=== PATIENT | female | born 1930 | race Caucasian/White ===

== ENCOUNTER → 2017-03-03 | Outpatient (CLI) | payer MEDICARE, BC ==
--- NOTE | 2017-03-03 13:43 | XR ---
EXAMINATION TYPE: XR ankle complete LT DATE OF EXAM: 03/03/2017 1:38 PM COMPARISON: NONE HISTORY: Pain FINDINGS: Three views of the ankle demonstrate the ankle mortise to be intact and symmetric. The joint spaces are preserved. The osseous structures are intact. Soft tissue edema with soft tissue calcifications . Located corticated density adjacent to the medial malleolus compatible with remote trauma. Calcanea l spurs seen. Metallic densities overlying the posterior tibia may be artifact rather than foreign hanane dy correlate clinically. IMPRESSION: 1. Chronic evidence of trauma with diffuse soft tissue edema correlate for cellulitis.
== END ==
LOC: RADXRMAIN 13:13
PROVIDERS: ATTEND Family Medicine
DX: R60.0 Localized edema (principal)

== ENCOUNTER → 2017-03-03 | Outpatient (CLI) | payer MEDICARE, BC ==
[~2017-03-03] MED LIST: COSYNTROPIN 0.25 MG VIAL IVP NR; SODIUM CHLORIDE 0.9% 250 ML in EMPTY BAG 1 BAG IV PRN; SODIUM CHLORIDE 0.9% 500 ML in EMPTY BAG 1 BAG IV PRN
[2017-03-03 13:56] VITALS: BP 139/80; PULSE 90; RESP 16; TEMP 97.9
== END ==
LOC: PROCWHC3 13:39
PROVIDERS: ATTEND Internal Medicine Critical Care Medicine
DX: J84.112 Idiopathic pulmonary fibrosis (principal)
CPT/HCPCS: 82533; 82024; 73610; 96374; 36415; J0834

== ENCOUNTER 2017-10-14 20:40 | Emergency (ER) | payer MEDICARE, BC ==
[2017-10-14 21:05] VITALS: RESP 18
[2017-10-14] MEDS ORDERED: valACYclovir HCL 1,000 MG TABLET PO STA (21:31)
--- NOTE | 2017-10-14 21:37 | ED ---
Abdominal Pain HPI - General Chief Complaint: Abdominal Pain Stated Complaint: left side and Abd Pain Time Seen by Provider: 10/14/17 21:14 Source: patient, family, RN notes reviewed Mode of arrival: wheelchair Limitations: no limitations - History of Present Illness Initial Comments: This is an 86-year-old female presents emergency Department with chief complaint of left-sided abdominal pain. Patient states the pain started on Wednesday and has progressively gotten worse. She did have a bowel movement this morning which did not really help her symptoms. She denies any diarrhea or constipation today. She does state that she does not have a regular bowel movement so. She states that she feels very gassy and has been passing gas. Patient states that she's had a prior hysterectomy, cholecystectomy. Denies fever, chills. She does admit to having a prior history of diverticulitis. Patient denies dysuria, hematuria, chest pain or shortness breath. She states she normally has some shortness of breath though. - Related Data Home Medications Medication Instructions Recorded Confirmed Furosemide [Lasix] 20 mg PO DAILY 09/23/17 10/14/17 Hydrocortisone Cream 1 applic TOPICAL HS 09/23/17 10/14/17 [Hydrocortisone 2.5% Cream] Ibuprofen 600 mg PO TID PRN 09/23/17 10/14/17 Meclizine HCl 25 mg PO TID 09/23/17 10/14/17 aMILoride-HCTZ 5-50 mg [Moduretic 1 tab PO DAILY 09/23/17 10/14/17 5-50] predniSONE 10 mg PO DAILY 09/23/17 10/14/17 Previous Rx's Medication Instructions Recorded Apixaban [Eliquis] 2.5 mg PO BID #60 tablet 09/25/17 Metoprolol Tartrate [Lopressor] 25 mg PO BID #60 tab 09/25/17 Nitroglycerin Sl Tabs [Nitrostat] 0.4 mg SUBLINGUAL Q5M PRN #20 tab 09/25/17 valACYclovir HCL [Valtrex] 1,000 mg PO Q8HR #30 tab 10/14/17 Allergies Allergy/AdvReac Type Severity Reaction Status Date / Time aspirin Allergy Rash/Hives Verified 10/14/17 21:14 codeine Allergy Itching Verified 10/14/17 21:14 Iodinated Contrast- Oral and AdvReac Dyspnea Verified 10/14/17 21:14 IV Dye Review of Systems ROS Statement: Those systems with pertinent positive or pertinent negative responses have been documented in the HPI. ROS Other: All systems not noted in ROS Statement are negative. Past Medical History Past Medical History: Atrial Fibrillation, Cancer, GERD/Reflux, Hypertension, Osteoarthritis (OA), Pneumonia Additional Past Medical History / Comment(s): pulmoary fibrosis ,home 02 2 liters n/c, BACK PAIN,VARICOSE VEINS, DIVERTICULITS, SKIN CANCER(FOREHAED AND TOP OF HEAD), CATARACTS(SX ON LT EYE IN 2004,RT EYE 09-23-17), History of Any Multi-Drug Resistant Organisms: None Reported Past Surgical History: Back Surgery, Cholecystectomy, Hysterectomy, Orthopedic Surgery Additional Past Surgical History / Comment(s): bilateral knee replacements, garrick cataracts, vein stripping,colonoscopy, egd, total hysterectomy, garrick shoulder sx- bone spurs removed Past Anesthesia/Blood Transfusion Reactions: Motion Sickness Past Psychological History: Anxiety Smoking Status: Never smoker Past Alcohol Use History: None Reported Past Drug Use History: None Reported - Past Family History Mother Family Medical History: CVA/TIA Father History Unknown: Yes Additional Family Medical History / Comment(s): pt was raised by step father Sister(s) Family Medical History: Cancer Additional Family Medical History / Comment(s): breast cancer General Exam Limitations: no limitations General appearance: alert, in no apparent distress Head exam: Present: atraumatic, normocephalic, normal inspection Respiratory exam: Present: normal lung sounds bilaterally. Absent: respiratory distress, wheezes, rales, rhonchi, stridor Cardiovascular Exam: Present: regular rate, normal rhythm, normal heart sounds. Absent: systolic murmur, diastolic murmur, rubs, gallop, clicks GI/Abdominal exam: Present: soft, tenderness (Moderate left-sided abdominal tenderness), normal bowel sounds. Absent: distended, guarding, rebound, rigid Skin exam: Present: rash (Vesicular erythematous rash over the left buttock ) Course Vital Signs 10/14/17 10/14/17 21:02 22:20 Temperature 98.2 F Pulse Rate 100 78 Respiratory 18 18 Rate Blood Pressure 145/67 148/65 O2 Sat by Pulse 90 L 99 Oximetry Medical Decision Making - Medical Decision Making 86-year-old female presents emergency Department chief complaint of left-sided abdominal discomfort. Patient CT does not show any evidence of acute infection. Patient's pain may be related to her shingles. Patient does have complaints of increased gas and which they've been given her MiraLAX. Patient' s symptoms may be related to this. Patient is advised to take softener rather than a laxative and patient prescribed Valtrex for her shingles - Lab Data Result diagrams: 10/14/17 21:45 10/14/17 21:45 Lab Results 10/14/17 10/14/17 10/14/17 Range/Units 21:40 21:45 21:45 WBC 8.0 (3.8-10.6) k/uL RBC 3.77 L (3.80-5.40) m/uL Hgb 11.4 (11.4-16.0) gm/dL Hct 36.1 (34.0-46.0) % MCV 95.6 (80.0-100.0) fL MCH 30.3 (25.0-35.0) pg MCHC 31.6 (31.0-37.0) g/dL RDW 14.6 (11.5-15.5) % Plt Count 168 (150-450) k/uL Neutrophils % 71 % Lymphocytes % 16 % Monocytes % 8 % Eosinophils % 3 % Basophils % 0 % Neutrophils # 5.7 (1.3-7.7) k/uL Lymphocytes # 1.3 (1.0-4.8) k/uL Monocytes # 0.6 (0-1.0) k/uL Eosinophils # 0.2 (0-0.7) k/uL Basophils # 0.0 (0-0.2) k/uL Sodium 136 L (137-145) mmol/L Potassium 4.2 (3.5-5.1) mmol/L Chloride 94 L (98-107) mmol/L Carbon Dioxide 35 H (22-30) mmol/L Anion Gap 7 mmol/L BUN 25 H (7-17) mg/dL Creatinine 0.90 (0.52-1.04) mg/dL Est GFR (MDRD) Af Amer >60 (>60 ml/min/1.73 sqM) Est GFR (MDRD) Non-Af 60 (>60 ml/min/1.73 sqM) Glucose 128 H (74-99) mg/dL Plasma Lactic Acid Adebayo (0.7-2.0) mmol/L Calcium 9.1 (8.4-10.2) mg/dL Total Bilirubin 1.0 (0.2-1.3) mg/dL AST 32 (14-36) U/L ALT 41 (9-52) U/L Alkaline Phosphatase 71 (38-126) U/L Total Protein 6.9 (6.3-8.2) g/dL Albumin 3.3 L (3.5-5.0) g/dL Amylase 63 (30-110) U/L Lipase 133 (23-300) U/L Urine Color Yellow Urine Appearance Clear (Clear) Urine pH 7.0 (5.0-8.0) Ur Specific [place] 1.015 (1.001-1.035) Urine Protein Negative (Negative) Urine Glucose (UA) Negative (Negative) Urine Ketones Negative (Negative) Urine Blood Negative (Negative) Urine Nitrite Negative (Negative) Urine Bilirubin Negative (Negative) Urine Urobilinogen 12.0 (<2.0) mg/dL Ur Leukocyte Esterase Negative (Negative) 10/14/17 Range/Units 21:45 WBC (3.8-10.6) k/uL RBC (3.80-5.40) m/uL Hgb (11.4-16.0) gm/dL Hct (34.0-46.0) % MCV (80.0-100.0) fL MCH (25.0-35.0) pg MCHC (31.0-37.0) g/dL RDW (11.5-15.5) % Plt Count (150-450) k/uL Neutrophils % % Lymphocytes % % Monocytes % % Eosinophils % % Basophils % % Neutrophils # (1.3-7.7) k/uL Lymphocytes # (1.0-4.8) k/uL Monocytes # (0-1.0) k/uL Eosinophils # (0-0.7) k/uL Basophils # (0-0.2) k/uL Sodium (137-145) mmol/L Potassium (3.5-5.1) mmol/L Chloride (98-107) mmol/L Carbon Dioxide (22-30) mmol/L Anion Gap mmol/L BUN (7-17) mg/dL Creatinine (0.52-1.04) mg/dL Est GFR (MDRD) Af Amer (>60 ml/min/1.73 sqM) Est GFR (MDRD) Non-Af (>60 ml/min/1.73 sqM) Glucose (74-99) mg/dL Plasma Lactic Acid Adebayo 1.8 (0.7-2.0) mmol/L Calcium (8.4-10.2) mg/dL Total Bilirubin (0.2-1.3) mg/dL AST (14-36) U/L ALT (9-52) U/L Alkaline Phosphatase (38-126) U/L Total Protein (6.3-8.2) g/dL Albumin (3.5-5.0) g/dL Amylase (30-110) U/L Lipase (23-300) U/L Urine Color Urine Appearance (Clear) Urine pH (5.0-8.0) Ur Specific [place] (1.001-1.035) Urine Protein (Negative) Urine Glucose (UA) (Negative) Urine Ketones (Negative) Urine Blood (Negative) Urine Nitrite (Negative) Urine Bilirubin (Negative) Urine Urobilinogen (<2.0) mg/dL Ur Leukocyte Esterase (Negative) Disposition Clinical Impression: Abdominal pain, Shingles, Abdominal gas pain Disposition: HOME SELF-CARE Condition: Stable Instructions: Abdominal Pain (ED), Shingles (ED) Additional Instructions: Please return to the Emergency Department if symptoms worsen or any other concerns. Prescriptions: valACYclovir HCL [Valtrex] 1,000 mg PO Q8HR #30 tab Referrals: Angel Boss DO [Primary Care Provider] - 1-2 days Time of Disposition: 22:30
[2017-10-14 21:51] LABS: Appearance,Urine Clear (Clear); Bilirubin,Urine Negative (Negative); Blood,Urine Negative (Negative); Color,Urine Yellow; Glucose,Urine (UA) Negative (Negative); Ketones,Urine Negative (Negative); Leukocyte Esterase,Urine Negative (Negative); Nitrite,Urine Negative (Negative); Protein,Urine Negative (Negative); Specific Gravity,Urine 1.015 (1.001-1.035)
[2017-10-14 22:04] LABS: Basophils % (A) 0 %; Eosinophils # (A) 0.2 k/uL (0-0.7); Eosinophils % (A) 3 %; HCT 36.1 % (34.0-46.0); HGB 11.4 gm/dL (11.4-16.0); Lymphocytes # (A) 1.3 k/uL (1.0-4.8); Lymphocytes % (A) 16 %; MCH 30.3 pg (25.0-35.0); MCHC 31.6 g/dL (31.0-37.0); MCV 95.6 fL (80.0-100.0); Mean Platelet Volume 7.4; Monocytes # (A) 0.6 k/uL (0-1.0); Monocytes % (A) 8 %; Neutrophils # (A) 5.7 k/uL (1.3-7.7); Neutrophils % (A) 71 %; Platelet Count 168 k/uL (150-450); RBC 3.77 m/uL (3.80-5.40); RDW 14.6 % (11.5-15.5)
[2017-10-14 22:12] LABS: ALT 41 U/L (9-52); AST 32 U/L (14-36); Albumin 3.3 g/dL (3.5-5.0); Alkaline Phosphatase 71 U/L (38-126); Amylase 63 U/L (30-110); Anion Gap 7 mmol/L; Blood Urea Nitrogen 25 mg/dL (7-17); Calcium 9.1 mg/dL (8.4-10.2); Carbon Dioxide 35 mmol/L (22-30); Chloride 94 mmol/L (98-107); Glucose 128 mg/dL (74-99); Lipase 133 U/L (23-300); Potassium 4.2 mmol/L (3.5-5.1); Sodium 136 mmol/L (137-145); Total Protein 6.9 g/dL (6.3-8.2)
[2017-10-14 22:22] VITALS: BP 148/65; PULSE 78
--- NOTE | 2017-10-14 22:27 | CT ---
EXAMINATION TYPE: CT abdomen pelvis wo con DATE OF EXAM: 10/14/2017 COMPARISON: NONE HISTORY: Left side abdominal pain. CT DLP: 2442.1 mGycm Automated exposure control for dose reduction was used. TECHNIQUE: Helical acquisition of images was performed from the lung bases through the pelvis. FINDINGS: There is coarse interstitial density in the mid and lower lung sheldon consistent with significant pul monary fibrosis. Heart is enlarged. There is vascular calcification. Liver shows no focal defect. Spleen appears normal. There is no pancreatic mass. Bile ducts are not d ilated. Gallbladder is absent. There is no adrenal mass. Kidneys have normal size and contour. There is no hydronephrosis. There is no retroperitoneal adenopathy. Abdominal aorta is atheromatous. There is no ascites. There are multip le sigmoid diverticula. I see no sign of diverticulitis. Appendix appears normal. There is a degenera tive first degree spondylolisthesis at L3-4 and L4-5. There is posterior fusion surgery. There is mul tilevel spondylosis in the lumbar spine. IMPRESSION: EXTENSIVE FIBROTIC CHANGES AT THE LUNG BASES. CARDIOMEGALY. ATHEROSCLEROTIC VASCULAR DISEASE. SPONDYL OTIC CHANGES IN THE LUMBAR SPINE. COLONIC DIVERTICULOSIS WITHOUT SIGN OF DIVERTICULITIS. NO SIGN OF A N ACUTE ABDOMEN. SMALL UMBILICAL HERNIA NOTED THAT CONTAINS OMENTAL FAT.
[2017-10-14 22:40] VITALS: TEMP 97.5
== END 2017-10-14 22:40 | disposition home or self-care (01) ==
LOC: EC 20:40
DX: B02.9 Zoster without complications (principal); R14.1 Gas pain; I10 Essential (primary) hypertension; Z85.828 Personal history of other malignant neoplasm of skin; Z90.49 Acquired absence of other specified parts of digestive tract; Z79.52 Long term (current) use of systemic steroids; Z79.899 Other long term (current) drug therapy; Z88.6 Allergy status to analgesic agent; Z88.5 Allergy status to narcotic agent; Z91.041 Radiographic dye allergy status
CPT/HCPCS: 36415; 74176; 80053; 81003; 82150; 83605; 83690; 85025; 99284

== ENCOUNTER 2017-11-11 10:11 | Inpatient (IN) | payer MEDICARE, BC ==
[2017-11-11] MEDS ORDERED: MORPHINE SULFATE 2 MG/ML SYRINGE IVP ONE (10:21)
[2017-11-11] MEDS ORDERED: SODIUM CHLORIDE 0.9% 1,000 ML IV ONE (10:21)
[2017-11-11] MEDS ORDERED: GABAPENTIN 300 MG CAP PO STA (10:21)
--- NOTE | 2017-11-11 10:41 | ED ---
General Adult HPI - General Chief complaint: Recheck/Abnormal Lab/Rx Stated complaint: Shingles Recheck Time Seen by Provider: 11/11/17 10:13 Source: patient, EMS Mode of arrival: EMS - History of Present Illness Initial comments: This is an 86-year-old female with a history of H of fibrillation, pulmonary fibrosis on chronic 2 L of O2 who presents emergency department for generalized weakness and buttock pain. The patient was diagnosed with shingles about 3 weeks ago. She has completed her course of therapy however has had persistent pain that is been severe. She states that she has had difficulty with ambulation. She's been sitting most of the day because she does not want to get up because of the pain. She states that her mouth feels very dry. She returned lives at home with her daughter who reportedly feels that she's been more and more weak because she has not been getting up. The patient normally can ambulate with a walker. Patient does not take any pain medications currently she is chronically on prednisone for her pulmonary fibrosis. She denies any chest pain or shortness of breath. No abdominal pain. No nausea vomiting or diarrhea. No dysuria or hematuria. No other acute complaints. - Related Data Home Medications Medication Instructions Recorded Confirmed Hydrocortisone Cream 1 applic TOPICAL HS PRN 09/23/17 11/11/17 [Hydrocortisone 2.5% Cream] aMILoride-HCTZ 5-50 mg [Moduretic 1 tab PO DAILY 09/23/17 11/11/17 5-50] predniSONE 10 mg PO DAILY 09/23/17 11/11/17 ALPRAZolam [Xanax] 0.5 mg PO Q8H PRN 11/11/17 11/11/17 Fluticasone Nasal [place] [Flonase 1 spray EA NOSTRIL DAILY 11/11/17 11/11/17 Nasal [place]] traMADol HCL [Ultram] 50 mg PO Q8H PRN 11/11/17 11/11/17 Previous Rx's Medication Instructions Recorded Apixaban [Eliquis] 2.5 mg PO BID #60 tablet 09/25/17 Metoprolol Tartrate [Lopressor] 25 mg PO BID #60 tab 09/25/17 Nitroglycerin Sl Tabs [Nitrostat] 0.4 mg SUBLINGUAL Q5M PRN #20 tab 09/25/17 Allergies Allergy/AdvReac Type Severity Reaction Status Date / Time aspirin Allergy Rash/Hives Verified 11/11/17 10:56 codeine Allergy Itching Verified 11/11/17 10:56 Iodinated Contrast- Oral and Allergy Anaphylaxis Verified 11/11/17 10:56 IV Dye Review of Systems ROS Statement: Those systems with pertinent positive or pertinent negative responses have been documented in the HPI. ROS Other: All systems not noted in ROS Statement are negative. Past Medical History Past Medical History: Atrial Fibrillation, Cancer, GERD/Reflux, Hypertension, Osteoarthritis (OA), Pneumonia Additional Past Medical History / Comment(s): pulmoary fibrosis ,home 02 2 liters n/c, BACK PAIN,VARICOSE VEINS, DIVERTICULITS, SKIN CANCER(FOREHAED AND TOP OF HEAD), CATARACTS(SX ON LT EYE IN 2004,RT EYE 09-23-17), Shingles 10/17/17 History of Any Multi-Drug Resistant Organisms: None Reported Past Surgical History: Back Surgery, Cholecystectomy, Hysterectomy, Orthopedic Surgery Additional Past Surgical History / Comment(s): bilateral knee replacements, garrick cataracts, vein stripping,colonoscopy, egd, total hysterectomy, garrick shoulder sx- bone spurs removed Past Anesthesia/Blood Transfusion Reactions: Motion Sickness Past Psychological History: Anxiety Smoking Status: Never smoker Past Alcohol Use History: None Reported Past Drug Use History: None Reported - Past Family History Mother Family Medical History: CVA/TIA Father History Unknown: Yes Additional Family Medical History / Comment(s): pt was raised by step father Sister(s) Family Medical History: Cancer Additional Family Medical History / Comment(s): breast cancer General Exam - General Exam Comments Initial Comments: Constitutional: Awake alert patient very uncomfortable with any slight movement Head: Normocephalic atraumatic Eyes: no conjunctival injection No scleral icterus EOMI ENT: Oropharynx is dry without erythema Neck: No JVD Supple Heart: Regular rate rhythm normal S1-S2 no murmurs Lungs: Clear to auscultation bilaterally No wheezing No rales Abdomen: Soft nondistended nontender Extremities: Non edematous DP pulses intact Radial pulses intact, there is a scaling dry rash to the left buttock extending to the left lateral thigh. No active lesions Neuro: A&Ox3 No focal neurologic deficits Psych: Appropriate mood and affect Course Vital Signs 11/11/17 11/11/17 10:24 12:58 Temperature 98.2 F 97.5 F L Pulse Rate 98 95 Respiratory 20 18 Rate Blood Pressure 157/72 160/95 O2 Sat by Pulse 97 100 Oximetry EKG Findings - EKG Comments: EKG Findings:: EKG showing it or fibrillation with a rate of 86. Normal was 27 changes or tumor in her QTC is 473. Other intervals are normal. No ectopy. Medical Decision Making - Medical Decision Making Is a 6-year-old female who presents emergency department for generalized weakness, mild shortness of breath, and pain. The patient was found have a left -sided pneumonia. She started on Levaquin. Due to her significant weakness and do not feel it safe for her to go home. She has not been eating or drinking. She appears clinically dehydrated. She was started on IV fluids and will be admitted. Dr. Boss accepts the admission. Patient and family were updated and agree. - Lab Data Result diagrams: 11/11/17 12:05 11/11/17 12:05 Lab Results 11/11/17 11/11/17 11/11/17 Range/Units 12:05 12:05 12:55 WBC 10.1 (3.8-10.6) k/uL RBC 4.20 (3.80-5.40) m/uL Hgb 13.0 (11.4-16.0) gm/dL Hct 41.9 (34.0-46.0) % MCV 99.9 (80.0-100.0) fL MCH 31.0 (25.0-35.0) pg MCHC 31.0 (31.0-37.0) g/dL RDW 16.8 H (11.5-15.5) % Plt Count 162 (150-450) k/uL Neutrophils % 55 % Lymphocytes % 28 % Monocytes % 11 % Eosinophils % 3 % Basophils % 1 % Neutrophils # 5.6 (1.3-7.7) k/uL Lymphocytes # 2.8 (1.0-4.8) k/uL Monocytes # 1.1 H (0-1.0) k/uL Eosinophils # 0.3 (0-0.7) k/uL Basophils # 0.1 (0-0.2) k/uL Anisocytosis Slight Macrocytosis Slight Sodium 133 L (137-145) mmol/L Potassium 4.6 (3.5-5.1) mmol/L Chloride 94 L (98-107) mmol/L Carbon Dioxide 30 (22-30) mmol/L Anion Gap 9 mmol/L BUN 24 H (7-17) mg/dL Creatinine 0.70 (0.52-1.04) mg/dL Est GFR (MDRD) Af Amer >60 (>60 ml/min/1.73 sqM) Est GFR (MDRD) Non-Af >60 (>60 ml/min/1.73 sqM) Glucose 86 (74-99) mg/dL Calcium 9.5 (8.4-10.2) mg/dL Magnesium 2.0 (1.6-2.3) mg/dL Total Bilirubin 2.9 H (0.2-1.3) mg/dL AST 36 (14-36) U/L ALT 17 (9-52) U/L Alkaline Phosphatase 84 (38-126) U/L Total Protein 7.6 (6.3-8.2) g/dL Albumin 3.7 (3.5-5.0) g/dL Urine Color Yellow Urine Appearance Clear (Clear) Urine pH 6.5 (5.0-8.0) Ur Specific [place] 1.012 (1.001-1.035) Urine Protein Negative (Negative) Urine Glucose (UA) Negative (Negative) Urine Ketones Negative (Negative) Urine Blood Negative (Negative) Urine Nitrite Negative (Negative) Urine Bilirubin Negative (Negative) Urine Urobilinogen <2.0 (<2.0) mg/dL Ur Leukocyte Esterase Negative (Negative) Disposition Clinical Impression: CAP (community acquired pneumonia), Ambulatory dysfunction Disposition: ADMITTED IP TO THIS HOSP Condition: Stable
--- NOTE | 2017-11-11 11:04 | XR ---
EXAMINATION TYPE: XR chest 1V portable DATE OF EXAM: 11/11/2017 COMPARISON: 09/23/2017 HISTORY: Shortness of breath and weakness TECHNIQUE: Single frontal view of the chest is obtained. FINDINGS: There is improved aeration of the lungs in comparison to the prior, however there is a new patchy opacity within the left midlung. Heart is enlarged. There is generalized osseous demineraliza tion. Diffuse interstitial prominence has decreased from the prior. Left-sided humeral arthroplasty a nd extensive degenerative changes of the right acromio clavicular joint with sequela of chronic rotat or cuff injury are noted. IMPRESSION: 1. New midlung persistent patchy opacity concerning for pneumonia. 2. Mild interstitial prominence appears decreased from the prior exam favored to relate to mild inter stitial cardiogenic pulmonary edema.
[2017-11-11] MEDS ORDERED: LEVOFLOXACIN 500MG-D5W PMX 500 MG in DEXTROSE/WATER 1 100ML.BAG IVPB STA (11:23)
[2017-11-11 12:26] LABS: ALT 17 U/L (9-52); AST 36 U/L (14-36); Albumin 3.7 g/dL (3.5-5.0); Alkaline Phosphatase 84 U/L (38-126); Anion Gap 9 mmol/L; Blood Urea Nitrogen 24 mg/dL (7-17); Calcium 9.5 mg/dL (8.4-10.2); Carbon Dioxide 30 mmol/L (22-30); Chloride 94 mmol/L (98-107); Glucose 86 mg/dL (74-99); Sodium 133 mmol/L (137-145); Total Bilirubin 2.9 mg/dL (0.2-1.3); Total Protein 7.6 g/dL (6.3-8.2)
[2017-11-11 12:28] LABS: Anisocytosis Slight; Basophils # (A) 0.1 k/uL (0-0.2); Basophils % (A) 1 %; Eosinophils # (A) 0.3 k/uL (0-0.7); Eosinophils % (A) 3 %; HCT 41.9 % (34.0-46.0); Lymphocytes # (A) 2.8 k/uL (1.0-4.8); Lymphocytes % (A) 28 %; MCV 99.9 fL (80.0-100.0); Macrocytosis Slight; Mean Platelet Volume 7.5; Monocytes # (A) 1.1 k/uL (0-1.0); Monocytes % (A) 11 %; Neutrophils # (A) 5.6 k/uL (1.3-7.7); Neutrophils % (A) 55 %; Platelet Count 162 k/uL (150-450); RDW 16.8 % (11.5-15.5); WBC 10.1 k/uL (3.8-10.6)
[2017-11-11 12:35] LABS: Potassium 4.6 mmol/L (3.5-5.1)
[2017-11-11 13:13] LABS: Appearance,Urine Clear (Clear); Bilirubin,Urine Negative (Negative); Blood,Urine Negative (Negative); Color,Urine Yellow; Glucose,Urine (UA) Negative (Negative); Ketones,Urine Negative (Negative); Leukocyte Esterase,Urine Negative (Negative); Nitrite,Urine Negative (Negative); PH, Urine 6.5 (5.0-8.0); Protein,Urine Negative (Negative); Specific Gravity,Urine 1.012 (1.001-1.035); Urobilinogen,Urine <2.0 mg/dL (<2.0)
[2017-11-11] MEDS ORDERED: PNEUMONIA PROTOCOL UTILIZED 1 EACH MISC PO PRN (13:30)
[2017-11-11] MEDS ORDERED: HYDROCORTISONE 1% CREAM 30 GM TUBE TOPICAL PRN (13:31)
[2017-11-11] MEDS ORDERED: ALPRAZolam 0.5 MG TAB PO PRN (13:31)
[2017-11-11] MEDS: SODIUM CHLORIDE 0.9% 1,000 ML IV SCH (13:36)
[2017-11-11 17:43] VITALS: BMI 45.7
[2017-11-11] MEDS: traMADol 50 MG TAB PO PRN (18:21)
[2017-11-11] MEDS: METOPROLOL TARTRATE 25 MG TAB PO SCH (20:02)
[2017-11-11] MEDS: APIXABAN 2.5 MG TABLET PO SCH (20:02)
[2017-11-12] MEDS: SODIUM CHLORIDE 0.9% 1,000 ML IV SCH ×2 (02:56→10:43)
[2017-11-12] MEDS: traMADol 50 MG TAB PO PRN ×3 (03:43→19:44)
[2017-11-12] MEDS: aMILoride-HCTZ 5-50 mg 1 EACH TAB PO SCH (07:37)
[2017-11-12] MEDS: METOPROLOL TARTRATE 25 MG TAB PO SCH ×2 (07:37→20:45)
[2017-11-12] MEDS: PANTOPRAZOLE 40 MG TABLET PO SCH (07:37)
[2017-11-12] MEDS: APIXABAN 2.5 MG TABLET PO SCH ×2 (07:37→20:46)
[2017-11-12] MEDS: FLUTICASONE 50MCG/SPRAY NASAL 16GM EA NOSTRIL SCH (07:37)
[2017-11-12] MEDS ORDERED: predniSONE 10 MG TAB PO SCH (09:00)
[2017-11-12 09:23] LABS: Anisocytosis Slight; Basophils % (A) 0 %; Eosinophils # (A) 0.2 k/uL (0-0.7); Eosinophils % (A) 2 %; HGB 11.5 gm/dL (11.4-16.0); Lymphocytes % (A) 22 %; MCHC 31.9 g/dL (31.0-37.0); MCV 100.2 fL (80.0-100.0); Macrocytosis Slight; Mean Platelet Volume 7.7; Monocytes # (A) 0.9 k/uL (0-1.0); Monocytes % (A) 10 %; Neutrophils # (A) 5.7 k/uL (1.3-7.7); Neutrophils % (A) 63 %; Platelet Count 142 k/uL (150-450); RBC 3.59 m/uL (3.80-5.40); RDW 16.5 % (11.5-15.5)
[2017-11-12 09:34] LABS: Anion Gap 8 mmol/L; Blood Urea Nitrogen 20 mg/dL (7-17); Calcium 8.5 mg/dL (8.4-10.2); Carbon Dioxide 28 mmol/L (22-30); Chloride 95 mmol/L (98-107); Glucose 98 mg/dL (74-99); Potassium 4.2 mmol/L (3.5-5.1); Sodium 131 mmol/L (137-145)
--- NOTE | 2017-11-12 12:04 | XR ---
EXAMINATION TYPE: XR chest 2V DATE OF EXAM: 11/12/2017 COMPARISON: 11/11/2017 HISTORY: Pneumonia. Progress exam. TECHNIQUE: Frontal and lateral views of the chest are obtained. FINDINGS: The previously seen left midlung opacity is less complimentary today's examination with im proved aeration, resolving in the interim. This is superimposed upon diffuse interstitial prominence, similar to previous exams. This is accentuated on the right secondary to patient rotation. Chronic b lunting of the right costophrenic angle is again noted. No sizable pleural effusion or pneumothorax. Left humeral arthroplasty is partially visualized. Cardiac silhouette is enlarged. IMPRESSION: Improving left midlung opacity superimposed upon a background of chronic interstitial pr ominence, possibly related to interstitial lung disease.
[2017-11-12] MEDS ORDERED: ALBUTEROL NEBULIZED 2.5 MG/3 ML INHALATION PRN (13:01)
--- NOTE | 2017-11-12 13:03 | P.CNPUL ---
History of Present Illness Consult date: 11/12/17 Requesting physician: Angel Boss Reason for consult: dyspnea Chief complaint: Lower extremity weakness, fatigue, shortness of breath History of present illness: This is a very pleasant 86-year-old female patient who follows with Dr. Boss as her primary care physician. She has a history of morbid obesity, osteoarthritis, chronic venous stasis of the lower extremity with cellulitis, atrial fibrillation anticoagulated with Eliquis, hyperlipidemia, anxiety, chronic pain syndrome. 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 Mcintyre in our office for the same. Her last PFT in October 2016 revealed moderately severe restrictive lung disease along with moderately severe diffusion defect. She was last seen there in August 2017. At that time she did have some complaints of chronic weakness and her ACTH stim test was negative. She had also been diagnosed with shingles approximately 3 weeks ago. She presented here to the emergency room yesterday with a progressive weakness and unable to get up out of bed. She normally can ambulate with a walker. She denied any worsening shortness of breath, cough or congestion. No nausea, vomiting or diarrhea. Her chest x-ray showed new midlung persistent patchy opacity concerning for a pneumonia on top of her superimposed interstitial lung disease. No leukocytosis. Hemoglobin 11.5. Creatinine 0.63. Influenza screen is negative. Urinalysis negative. She has been afebrile. Maintaining good O2 saturations in the upper 90s on 2 L/m per nasal cannula. Hemodynamically stable. She is seen today in consultation on the regular medical floor. She is able to lay flat in bed. No worsening shortness of breath. No cough or congestion. No chills or night sweats. She is quite weak and needs assistance 2 to transfer from the bed to the chair. Review of Systems 14 point review of system was conducted. All negative other than as mentioned in HPI. Past Medical History Past Medical History: Atrial Fibrillation, Cancer, GERD/Reflux, Hypertension, Osteoarthritis (OA), Pneumonia, Respiratory Disorder Additional Past Medical History / Comment(s): Pt admitted 09/23/17 with new onset Afib with RVR, chest pain and chronic hypoxic respiratory failure. 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 History of Any Multi-Drug Resistant Organisms: None Reported Past Surgical History: Back Surgery, Cholecystectomy, Hysterectomy, Joint Replacement, Orthopedic Surgery Additional Past Surgical History / Comment(s): bilateral knee replacements, garrick cataracts/lens implants, bilateral vein stripping, colonoscopy, egd, total hysterectomy, bilateral shoulder sx-bone spurs removed and has implant L shoulder. low back surgery. Past Anesthesia/Blood Transfusion Reactions: Motion Sickness Past Psychological History: Anxiety, Depression Additional Psychological History / Comment(s): Pt lives with spouse and daughter. Pt has home 02 which she wears at 2L/NC ATC. She normally uses a walker when up. She does not drive, her daughter takes her to appts. She has had home care but it is done now. Smoking Status: Never smoker Past Alcohol Use History: Rare Past Drug Use History: None Reported - Past Family History Mother Family Medical History: CVA/TIA Father History Unknown: Yes Additional Family Medical History / Comment(s): pt was raised by step father Sister(s) Family Medical History: Cancer Additional Family Medical History / Comment(s): breast cancer Medications and Allergies Home Medications Medication Instructions Recorded Confirmed Type Hydrocortisone Cream 1 applic TOPICAL HS PRN 09/23/17 11/11/17 History [Hydrocortisone 2.5% Cream] aMILoride-HCTZ 5-50 mg [Moduretic 1 tab PO DAILY 09/23/17 11/11/17 History 5-50] predniSONE 10 mg PO DAILY 09/23/17 11/11/17 History Apixaban [Eliquis] 2.5 mg PO BID #60 tablet 09/25/17 11/11/17 Rx Metoprolol Tartrate [Lopressor] 25 mg PO BID #60 tab 09/25/17 11/11/17 Rx Nitroglycerin Sl Tabs [Nitrostat] 0.4 mg SUBLINGUAL Q5M PRN #20 tab 09/25/1710/28 Rx ALPRAZolam [Xanax] 0.5 mg PO Q8H PRN 11/11/17 11/11/17 History Fluticasone Nasal [place] [Flonase 1 spray EA NOSTRIL DAILY 11/11/17 11/11/17 History Nasal [place]] traMADol HCL [Ultram] 50 mg PO Q8H PRN 11/11/17 11/11/17 History Allergies Allergy/AdvReac Type Severity Reaction Status Date / Time aspirin Allergy Rash/Hives Verified 11/11/17 10:56 codeine Allergy Itching Verified 11/11/17 10:56 Iodinated Contrast- Oral and Allergy Anaphylaxis Verified 11/11/17 10:56 IV Dye Physical Exam Vitals: Vital Signs Temp Pulse Pulse Resp BP BP BP 11/12/17 07:00 98.3 F 93 20 123/60 11/11/17 23:00 98.3 F 108 H 24 154/117 11/11/17 17:30 98.6 F 91 20 132/91 11/11/17 17:00 97.7 F 91 18 150/94 11/11/17 16:09 85 18 141/79 11/11/17 15:51 97.8 F 81 18 129/77 11/11/17 14:10 91 18 141/64 11/11/17 12:58 97.5 F L 95 18 160/95 Pulse Ox 11/12/17 07:00 97 11/11/17 23:00 99 11/11/17 17:30 98 11/11/17 17:00 100 11/11/17 16:09 100 11/11/17 15:51 100 11/11/17 14:10 100 11/11/17 12:58 100 Intake and Output 11/11/17 11/12/17 11/12/17 22:59 06:59 14:59 Intake Total 200 400 Output Total 1600 800 Balance -1400 -400 Intake: Oral 200 400 Output: Urine 1600 800 Uretheral ([place]) 400 Other: Voiding Method Indwelling Catheter Indwelling Catheter Indwelling Catheter Weight 113.398 kg GENERAL EXAM: Morbidly obese, weak, in no apparent distress. HEAD: Normocephalic. Markings from previous skin cancer on the right face and forehead EYES: Normal reaction of pupils, equal size. NOSE: Clear with pink turbinates. THROAT: No erythema or exudates. NECK: No masses, no JVD. CHEST: No chest wall deformity. LUNGS: Equal air entry with coarse crackles in the bilateral posterior bases. CVS: S1 and S2 normal with no audible murmur, irregular rhythm. ABDOMEN: Obese, normal bowel sounds, no guarding or rigidity. SPINE: No scoliosis or deformity SKIN: Recent shingles on the buttocks. CENTRAL NERVOUS SYSTEM: No focal deficits, tone is normal in all 4 extremities. EXTREMITIES: There are changes of chronic venous stasis of the lower extremities. 1-2+ edema. No clubbing, no cyanosis. Peripheral pulses are intact. Results - Laboratory Findings CBC and BMP: 11/12/17 08:06 11/12/17 08:06 Abnormal lab findings: Abnormal Labs 11/11/17 11/11/17 11/12/17 12:05 12:05 08:06 RBC 3.59 L MCV 100.2 H RDW 16.8 H 16.5 H Plt Count 142 L Monocytes # 1.1 H Sodium 133 L Chloride 94 L BUN 24 H Total Bilirubin 2.9 H 11/12/17 08:06 RBC MCV RDW Plt Count Monocytes # Sodium 131 L Chloride 95 L BUN 20 H Total Bilirubin - Diagnostic Findings Chest x-ray: image reviewed Assessment and Plan Assessment: Impression: #1 Generalized weakness secondary to dehydration and persistent pain secondary to shingles on the buttocks. #2 Chronic hypoxic respiratory failure secondary to interstitial pulmonary fibrosis maintained on O2 in the outpatient setting at 2 L/m per nasal cannula. #3 Morbid obesity. #4 Atrial fibrillation, anticoagulated with Eliquis. #5 Skin cancer to the face. #6 Hypertension. #7 Osteoarthritis. #8 Osteoarthritis with previous bilateral knee replacements. #9 Anxiety. #10 Poor overall functional performance based on the above-mentioned multiple comorbidities. Plan: The patient was seen and evaluated by Dr. Aleman. Her chest x-ray and labs were reviewed. Difficult to exclude a pneumonia. We'll continue with antibiotics in the form of Levaquin. Initiate bronchodilators 4 times a day and when necessary. Continue her maintenance prednisone. She remains anticoagulated with Eliquis. She is on Protonix for GI prophylaxis. Physical therapy is working with the patient. She may need placement to an extended care facility for inpatient rehabilitation. We will continue to follow and make further recommendations based on her clinical status. I, the cosigning physician, performed a history & physical examination of the patient. Lungs sounds have coarse crackles in the bilateral posterior bases. Maintaining good O2 saturations in the 90s on 2 L/m per nasal cannula. I discussed the assessment and plan of care with my nurse practitioner, Lilia Alves. I attest to the above note as dictated by her. Time with Patient: Greater than 30
--- NOTE | 2017-11-12 14:15 | P.HPIM ---
History of Present Illness H&P Date: 11/12/17 Chief Complaint: Generalized weakness 86-year-old female who presented to the emergency room with a chief complaint of generalized weakness and pain in her buttocks from recent diagnosis of shingles. The patient was diagnosed with shingles approximately 3 weeks ago at her primary care physician's office. She has completed her course of treatment. The patient states she has been having difficulty ambulating at home and getting around. She states that she feels very weak. Denies chest pain or pressure. Denies shortness of breath or coughing. Denies nausea or vomiting. Denies dizziness or lightheadedness. The patient has a history of pulmonary fibrosis and is maintained on daily prednisone and wears 2 L oxygen at home. She also has a history of atrial fibrillation, gastroesophageal reflux disease, hypertension, and osteoarthritis with previous bilateral total knee arthroplasties. She also has a history of anxiety and depression. Chest x-ray: New midlung persistent patchy opacity concerning for pneumonia. Mild interstitial prominence which appears decreased from the prior exam there are to relate to mild interstitial cardiogenic pulmonary edema EKG: atrial fibrillation with controlled rate. Rate 86. Laboratory data: WBC 10.1. Hemoglobin 13. Platelet count 162. Sodium 133. Potassium 4.6. BUN 24. Creatinine 0.70. GFR > 60. Glucose . Magnesium 2.0. Testing for influenza A and B was negative. Urinalysis unremarkable. An indwelling urinary catheter has been inserted secondary to urinary retention. The patient was admitted to the hospital under the care of Dr. Boss. Consultations were placed to pulmonology. Review of Systems GENERAL: Positive for generalized fatigue and inability to ambulate. Patient denies fever. Denies chills. EYES: Denies blurred vision. Denies vision changes. Denies eye pain. EARS, NOSE, MOUTH, & THROAT: Denies headache. Denies sore throat. Denies ear pain. RESPIRATORY: Denies cough. Denies shortness of breath. Denies sputum production. Denies hemoptysis. CARDIOVASCULAR: Denies chest pain or pressure. Denies palpitations. GASTROINTESTINAL: Denies abdominal pain. Denies diarrhea. Denies constipation. Denies nausea. Denies vomiting. Denies heartburn. Denies blood in the stool. GENITOURINARY: Denies urinary frequency. Denies burning. Denies dysuria. Denies cloudy urine. Denies blood in the urine. MUSCULOSKELETAL: Denies myalgias. Denies joint swelling. Denies decreased range of motion beyond patients baseline. INTEGUMENTARY: Positive for recent diagnosis of shingles. Denies pruitis. Denies rash. PSYCHIATRIC: Positive for history of anxiety and depression. Denies suicidal or homicial ideations. ENDOCRINE: Denies weight change. Denies polydipsia. Denies polyuria. HEMATOLOGIC: Denies bleeding disorders. Past Medical History Past Medical History: Atrial Fibrillation, Cancer, GERD/Reflux, Hypertension, Osteoarthritis (OA), Pneumonia, Respiratory Disorder Additional Past Medical History / Comment(s): Pt admitted 09/23/17 with new onset Afib with RVR, chest pain and chronic hypoxic respiratory failure. 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 History of Any Multi-Drug Resistant Organisms: None Reported Past Surgical History: Back Surgery, Cholecystectomy, Hysterectomy, Joint Replacement, Orthopedic Surgery Additional Past Surgical History / Comment(s): bilateral knee replacements, garrick cataracts/lens implants, bilateral vein stripping, colonoscopy, egd, total hysterectomy, bilateral shoulder sx-bone spurs removed and has implant L shoulder. low back surgery. Past Anesthesia/Blood Transfusion Reactions: Motion Sickness Past Psychological History: Anxiety, Depression Additional Psychological History / Comment(s): Pt lives with spouse and daughter. Pt has home 02 which she wears at 2L/NC ATC. She normally uses a walker when up. She does not drive, her daughter takes her to appts. She has had home care but it is done now. Smoking Status: Never smoker Past Alcohol Use History: Rare Past Drug Use History: None Reported - Past Family History Mother Family Medical History: CVA/TIA Father History Unknown: Yes Additional Family Medical History / Comment(s): pt was raised by step father Sister(s) Family Medical History: Cancer Additional Family Medical History / Comment(s): breast cancer Medications and Allergies Home Medications Medication Instructions Recorded Confirmed Type Hydrocortisone Cream 1 applic TOPICAL HS PRN 09/23/17 11/11/17 History [Hydrocortisone 2.5% Cream] aMILoride-HCTZ 5-50 mg [Moduretic 1 tab PO DAILY 09/23/17 11/11/17 History 5-50] predniSONE 10 mg PO DAILY 09/23/17 11/11/17 History Apixaban [Eliquis] 2.5 mg PO BID #60 tablet 09/25/17 11/11/17 Rx Metoprolol Tartrate [Lopressor] 25 mg PO BID #60 tab 09/25/17 11/11/17 Rx Nitroglycerin Sl Tabs [Nitrostat] 0.4 mg SUBLINGUAL Q5M PRN #20 tab 09/25/1710/28 Rx ALPRAZolam [Xanax] 0.5 mg PO Q8H PRN 11/11/17 11/11/17 History Fluticasone Nasal [place] [Flonase 1 spray EA NOSTRIL DAILY 11/11/17 11/11/17 History Nasal [place]] traMADol HCL [Ultram] 50 mg PO Q8H PRN 11/11/17 11/11/17 History Allergies Allergy/AdvReac Type Severity Reaction Status Date / Time aspirin Allergy Rash/Hives Verified 11/11/17 10:56 codeine Allergy Itching Verified 11/11/17 10:56 Iodinated Contrast- Oral and Allergy Anaphylaxis Verified 11/11/17 10:56 IV Dye Physical Exam Vitals: Vital Signs Temp Pulse Pulse Resp BP BP BP 11/12/17 07:00 98.3 F 93 20 123/60 11/11/17 23:00 98.3 F 108 H 24 154/117 11/11/17 17:30 98.6 F 91 20 132/91 11/11/17 17:00 97.7 F 91 18 150/94 11/11/17 16:09 85 18 141/79 11/11/17 15:51 97.8 F 81 18 129/77 11/11/17 14:10 91 18 141/64 Pulse Ox 11/12/17 07:00 97 11/11/17 23:00 99 11/11/17 17:30 98 11/11/17 17:00 100 11/11/17 16:09 100 11/11/17 15:51 100 11/11/17 14:10 100 Intake and Output 11/11/17 11/12/17 11/12/17 22:59 06:59 14:59 Intake Total 200 400 Output Total 1600 800 Balance -1400 -400 Intake: Oral 200 400 Output: Urine 1600 800 Uretheral ([place]) 400 Other: Voiding Method Indwelling Catheter Indwelling Catheter Indwelling Catheter Weight 113.398 kg GENERAL: This is a 86-year-old female in no apparent distress at the time of examination. Pleasant and cooperative. HEENT: Head is atraumatic, normocephalic. Pupils are equal, round, and reactive to light. Sclerae anicteric. Conjunctivae are clear. Mucus membranes of the mouth are moist. Neck is supple. RESPIRATORY: Respirations equal bilaterally. Coarse throughout with crackles in bilateral lung bases. No use of accessory muscles. Patient maintaining oxygen saturation greater than 92%. No chest wall tenderness is noted on palpation or with deep breathing. CARDIOVASCULAR: Irregular rhythm.. S1 and S2 noted. No systolic or diastolic murmur auscultated. No JVD noted. No S3 or S4 noted. GASTROINTESTINAL: Obese. No distention noted. Abdomen soft and round. Normal active bowel sounds auscultated x 4 quadrants. No pain or tenderness noted upon palpation. INTEGUMENTARY: Evidence of recent shingles noted to buttocks. No open lesions. No cyanosis. No jaundice. EXTREMITIES: 2+ peripheral pulses. 2+ lower extremity edema. No calf tenderness noted. NEUROLOGIC: Cranial nerves II-XII intact. PSYCHIATRIC: Awake, alert, and oriented X 3. Appropriate affect. Intact judgement and insight. Results CBC & Chem 7: 11/12/17 08:06 11/12/17 08:06 Labs: Abnormal Lab Results - Last 24 Hours (Table) 11/12/17 11/12/17 Range/Units 08:06 08:06 RBC 3.59 L (3.80-5.40) m/uL MCV 100.2 H (80.0-100.0) fL RDW 16.5 H (11.5-15.5) % Plt Count 142 L (150-450) k/uL Sodium 131 L (137-145) mmol/L Chloride 95 L (98-107) mmol/L BUN 20 H (7-17) mg/dL Thrombosis Risk Factor Assmnt - Choose All That Apply Any of the Below Risk Factors Present?: Yes Each Factor Represents 1 point: Medical pt on bed rest, Obesity (BMI >25), Serious lung disease incl. pneumonia (< 1month) Other Risk Factors: Yes Each Risk Factor Represents 2 Points: Malignancy Each Risk Factor Represents 3 Points: Age 75 years or older Other congenital or acquired thrombophilia - If yes, enter type in comment: No Thrombosis Risk Factor Assessment Total Risk Factor Score: 8 Thrombosis Risk Factor Assessment Level: High Risk Assessment and Plan Plan: ASSESSMENT: Left lobe community-acquired pneumonia, present on admission, sputum culture pending Generalized weakness and inability to ambulate secondary to painful buttocks with recent shingles diagnosis Recent diagnosis of shingles in the outpatient setting, patient completed course of treatment Postherpetic pain of buttocks Atrial fibrillation, maintained on long-term anticoagulation with Eliquis Urinary retention requiring indwelling urinary catheter Pulmonary fibrosis, maintained on daily prednisone Chronic hypoxic respiratory failure requiring supplemental oxygen at home secondary to above Essential hypertension Osteoarthritis with previous bilateral total knee arthroplasty Anxiety, unspecified Depression, unspecified Morbid obesity: BMI 45.7 PLAN: Pulmonary on consult. Appreciate recommendations and input Continue Levaquin Await results of sputum culture Await results of blood cultures Incentive spirometer 10 times an hour while awake Continue indwelling urinary catheter Begin Lyrica 75 mg twice a day for shingles pain Consult PT and OT Home meds as appropriate Monitor labs GI prophylaxis: Protonix 40 mg PO Daily DVT prophylaxis: Eliquis 2.5mg PO BID Monitor vital signs and address as appropriate Discharge planning: Patient will likely require ECF at the time of discharge Further recommendations pending patient's course Nurse practitioner note has been reviewed by physician. Signing provider agrees with the documented findings, assessment, and plan of care.
[2017-11-12] MEDS: LEVOFLOXACIN 750MG-D5W PMX 750 MG in DEXTROSE/WATER 1 150ML.BAG IVPB SCH (14:16)
[2017-11-12] MEDS: methylPREDNISolone SOD SUCCI 125 MG/2 ML VIAL IV SCH ×2 (14:58→17:22)
[2017-11-12] MEDS: PREGABALIN 75 MG CAP PO SCH (20:45)
[2017-11-13] MEDS: methylPREDNISolone SOD SUCCI 125 MG/2 ML VIAL IV SCH ×3 (00:06→12:46)
[2017-11-13] MEDS: SODIUM CHLORIDE 0.9% 1,000 ML IV SCH ×3 (01:40→17:46)
[2017-11-13 08:20] LABS: Basophils % (A) 0 %; Eosinophils % (A) 0 %; HCT 38.5 % (34.0-46.0); HGB 12.6 gm/dL (11.4-16.0); Lymphocytes # (A) 0.8 k/uL (1.0-4.8); Lymphocytes % (A) 11 %; MCH 31.5 pg (25.0-35.0); MCHC 32.7 g/dL (31.0-37.0); MCV 96.2 fL (80.0-100.0); Mean Platelet Volume 7.5; Monocytes # (A) 0.3 k/uL (0-1.0); Monocytes % (A) 3 %; Neutrophils # (A) 6.2 k/uL (1.3-7.7); Neutrophils % (A) 85 %; Platelet Count 166 k/uL (150-450); RDW 15.9 % (11.5-15.5); WBC 7.3 k/uL (3.8-10.6)
[2017-11-13 08:26] LABS: Anion Gap 8 mmol/L; Blood Urea Nitrogen 17 mg/dL (7-17); Calcium 8.8 mg/dL (8.4-10.2); Carbon Dioxide 29 mmol/L (22-30); Chloride 94 mmol/L (98-107); Glucose 155 mg/dL (74-99); Potassium 4.5 mmol/L (3.5-5.1); Sodium 131 mmol/L (137-145)
[2017-11-13] MEDS: APIXABAN 2.5 MG TABLET PO SCH ×2 (09:23→20:28)
[2017-11-13] MEDS: FLUTICASONE 50MCG/SPRAY NASAL 16GM EA NOSTRIL SCH (09:23)
[2017-11-13] MEDS: PANTOPRAZOLE 40 MG TABLET PO SCH (09:23)
[2017-11-13] MEDS: aMILoride-HCTZ 5-50 mg 1 EACH TAB PO SCH (09:23)
[2017-11-13] MEDS: PREGABALIN 75 MG CAP PO SCH ×2 (09:24→20:28)
[2017-11-13] MEDS: METOPROLOL TARTRATE 25 MG TAB PO SCH ×2 (09:24→20:28)
--- NOTE | 2017-11-13 11:38 | P.PN ---
Subjective Progress Note Date: 11/13/17 This is a very pleasant 86-year-old female patient who follows with Dr. Boss as her primary care physician. She has a history of morbid obesity, osteoarthritis, chronic venous stasis of the lower extremity with cellulitis, atrial fibrillation anticoagulated with Eliquis, hyperlipidemia, anxiety, chronic pain syndrome. 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 Mcintyre in our office for the same. Her last PFT in October 2016 revealed moderately severe restrictive lung disease along with moderately severe diffusion defect. She was last seen there in August 2017. At that time she did have some complaints of chronic weakness and her ACTH stim test was negative. She had also been diagnosed with shingles approximately 3 weeks ago. She presented here to the emergency room yesterday with a progressive weakness and unable to get up out of bed. She normally can ambulate with a walker. She denied any worsening shortness of breath, cough or congestion. No nausea, vomiting or diarrhea. Her chest x-ray showed new midlung persistent patchy opacity concerning for a pneumonia on top of her superimposed interstitial lung disease. No leukocytosis. Hemoglobin 11.5. Creatinine 0.63. Influenza screen is negative. Urinalysis negative. She has been afebrile. Maintaining good O2 saturations in the upper 90s on 2 L/m per nasal cannula. Hemodynamically stable. She is seen today in consultation on the regular medical floor. She is able to lay flat in bed. No worsening shortness of breath. No cough or congestion. No chills or night sweats. She is quite weak and needs assistance 2 to transfer from the bed to the chair. The patient is seen again today 11/13/2017 in follow-up in the regular medical floor. She is more awake and alert today as compared to yesterday. She denies any worsening shortness of breath, cough or congestion. She continues to maintain good O2 saturations in the upper 90s on 2 L/m per nasal cannula. She' s been afebrile. No tachycardia. No tachypnea. Hemodynamically stable. No leukocytosis. Blood culture reveals no growth to date. She does remain quite weak. She did attempt to get up in the chair with physical therapy. Her only complaint currently is that of itching. She is receiving calamine lotion. Objective - Vital Signs Vital signs: Vital Signs Temp 97 F L 11/13/17 07:00 Pulse 89 11/13/17 07:00 Resp 18 11/13/17 07:00 BP 136/73 11/13/17 07:00 Pulse Ox 97 11/13/17 07:00 Intake & Output 11/12/17 11/13/17 11/13/17 18:59 06:59 18:59 Intake Total 120 Output Total 500 1000 Balance -380 -1000 Intake: Oral 120 Output: Urine 500 1000 Other: Voiding Method Indwelling Catheter Indwelling Catheter # Bowel Movements 0 - Exam GENERAL EXAM: Morbidly obese, weak, in no apparent distress. HEAD: Normocephalic. Markings from previous skin cancer on the right face and forehead EYES: Normal reaction of pupils, equal size. NOSE: Clear with pink turbinates. THROAT: No erythema or exudates. NECK: No masses, no JVD. CHEST: No chest wall deformity. LUNGS: Equal air entry with coarse crackles in the bilateral posterior bases. CVS: S1 and S2 normal with no audible murmur, irregular rhythm. ABDOMEN: Obese, normal bowel sounds, no guarding or rigidity. SPINE: No scoliosis or deformity SKIN: Recent shingles on the buttocks. CENTRAL NERVOUS SYSTEM: No focal deficits, tone is normal in all 4 extremities. EXTREMITIES: There are changes of chronic venous stasis of the lower extremities. 1-2+ edema. No clubbing, no cyanosis. Peripheral pulses are intact. - Labs CBC & Chem 7: 11/13/17 07:53 11/13/17 07:53 Labs: Abnormal Lab Results - Last 24 Hours (Table) 11/12/17 11/12/17 11/13/17 Range/Units 08:06 08:06 07:53 RDW 15.9 H (11.5-15.5) % Lymphocytes # 0.8 L (1.0-4.8) k/uL ESR 39 H (0-20) mm/hr Sodium (137-145) mmol/L Chloride (98-107) mmol/L Glucose (74-99) mg/dL C-Reactive Protein 78.5 H (<10.0) mg/L 11/13/17 Range/Units 07:53 RDW (11.5-15.5) % Lymphocytes # (1.0-4.8) k/uL ESR (0-20) mm/hr Sodium 131 L (137-145) mmol/L Chloride 94 L (98-107) mmol/L Glucose 155 H (74-99) mg/dL C-Reactive Protein (<10.0) mg/L Microbiology - Last 24 Hours (Table) 11/11/17 12:05 Blood Culture - Preliminary Blood No Growth after 24 hours Assessment and Plan Assessment: Impression: #1 Generalized weakness secondary to dehydration and persistent pain secondary to shingles on the buttocks. #2 Chronic hypoxic respiratory failure secondary to interstitial pulmonary fibrosis maintained on O2 in the outpatient setting at 2 L/m per nasal cannula. #3 Morbid obesity. #4 Atrial fibrillation, anticoagulated with Eliquis. #5 Skin cancer to the face. #6 Hypertension. #7 Osteoarthritis. #8 Osteoarthritis with previous bilateral knee replacements. #9 Anxiety. #10 Poor overall functional performance based on the above-mentioned multiple comorbidities. Plan: The patient was seen and evaluated by Dr. Aleman. We'll continue with antibiotics in the form of Levaquin. Initiate bronchodilators 4 times a day and when necessary. Continue IV Solu-Medrol. She remains anticoagulated with Eliquis. She is on Protonix for GI prophylaxis. Increase activity as tolerated. Physical therapy is working with the patient. We will continue to follow and make further recommendations based on her clinical status. I, the cosigning physician, performed a history & physical examination of the patient. Lungs sounds have coarse crackles in the bilateral posterior bases. Maintaining good O2 saturations in the 90s on 2 L/m per nasal cannula. I discussed the assessment and plan of care with my nurse practitioner, Lilia Alves. I attest to the above note as dictated by her.
[2017-11-13] MEDS: LEVOFLOXACIN 750MG-D5W PMX 750 MG in DEXTROSE/WATER 1 150ML.BAG IVPB SCH (14:27)
[2017-11-13] MEDS: diphenhydrAMINE 25 MG CAP PO PRN (14:32)
--- NOTE | 2017-11-13 14:51 | P.PN ---
Subjective Patient with history of pulmonary fibrosis on 2 L of oxygen at home is admitted for COPD exacerbation and patient has significant improvement patient is doing well and patient is on 2 L of oxygen patient is still quite weak will need physical therapy evaluation Constitutional: Denied any fatigue denied any fever. Cardio vascular: denied any chest pain, palpitations Gastrointestinal denied any nausea vomiting Pulmonary: Significantly improved her status of breath Neurologic denied any new focal deficits Objective - Vital Signs Vital signs: Vital Signs Temp 97 F L 11/13/17 07:00 Pulse 89 11/13/17 07:00 Resp 18 11/13/17 07:00 BP 136/73 11/13/17 07:00 Pulse Ox 97 11/13/17 07:00 Intake & Output 11/12/17 11/13/17 11/13/17 18:59 06:59 18:59 Intake Total 120 Output Total 500 1000 Balance -380 -1000 Intake: Oral 120 Output: Urine 500 1000 Other: Voiding Method Indwelling Catheter Indwelling Catheter Indwelling Catheter # Bowel Movements 0 - Exam PHYSICAL EXAMINATION: GENERAL: The patient is alert and oriented x3, not in any acute distress. Well developed, well nourished. Lethargic HEENT: Pupils are round and equally reacting to light. EOMI. No scleral icterus. No conjunctival pallor. Normocephalic, atraumatic. No pharyngeal erythema. No thyromegaly. CARDIOVASCULAR: S1 and S2 present. No murmurs, rubs, or gallops. PULMONARY: Chest is clear to auscultation, no wheezing or crackles. ABDOMEN: Soft, nontender, nondistended, normoactive bowel sounds. No palpable organomegaly. MUSCULOSKELETAL: No joint swelling or deformity. EXTREMITIES: No cyanosis, clubbing, or pedal edema. NEUROLOGICAL: Gross neurological examination did not reveal any focal deficits. SKIN: No rashes. - Labs CBC & Chem 7: 11/13/17 07:53 11/13/17 07:53 Labs: Abnormal Lab Results - Last 24 Hours (Table) 11/12/17 11/12/17 11/13/17 Range/Units 08:06 08:06 07:53 RDW 15.9 H (11.5-15.5) % Lymphocytes # 0.8 L (1.0-4.8) k/uL ESR 39 H (0-20) mm/hr Sodium (137-145) mmol/L Chloride (98-107) mmol/L Glucose (74-99) mg/dL C-Reactive Protein 78.5 H (<10.0) mg/L 11/13/17 Range/Units 07:53 RDW (11.5-15.5) % Lymphocytes # (1.0-4.8) k/uL ESR (0-20) mm/hr Sodium 131 L (137-145) mmol/L Chloride 94 L (98-107) mmol/L Glucose 155 H (74-99) mg/dL C-Reactive Protein (<10.0) mg/L Microbiology - Last 24 Hours (Table) 11/11/17 12:05 Blood Culture - Preliminary Blood No Growth after 48 hours Assessment and Plan Plan: -Acute on chronic hypoxic respiratory failure: Secondary to COPD exacerbation patient with systemic steroids which will be tapered and patient is doing much better today -Tracheal bronchitis -Hypertension -Dyslipidemia -Generalized weakness secondary to dehydration patient's diuretic therapy will be held the patient is being continued on IV fluids. -Atrial fibrillation on anticoagulation -Shingles of bilateral buttocks for which patient is on antibiotics which will be continued -Osteoarthritis -Anxiety disorder -Morbid obesity, plan is to continue with antibiotics inhalational steroids systemic strides which will be tapered
[2017-11-13] MEDS: methylPREDNISolone SOD SUCCI 40 MG/ML 1 ML VIAL IV SCH (20:28)
[2017-11-14] MEDS: methylPREDNISolone SOD SUCCI 40 MG/ML 1 ML VIAL IV SCH ×2 (08:20→20:22)
[2017-11-14] MEDS: METOPROLOL TARTRATE 25 MG TAB PO SCH ×2 (08:20→20:22)
[2017-11-14] MEDS: APIXABAN 2.5 MG TABLET PO SCH ×2 (08:20→20:23)
[2017-11-14] MEDS: PREGABALIN 75 MG CAP PO SCH ×2 (08:20→20:23)
[2017-11-14] MEDS: traMADol 50 MG TAB PO PRN (08:20)
[2017-11-14] MEDS: PANTOPRAZOLE 40 MG TABLET PO SCH (08:20)
[2017-11-14] MEDS: FLUTICASONE 50MCG/SPRAY NASAL 16GM EA NOSTRIL SCH (09:50)
--- NOTE | 2017-11-14 12:06 | P.PN ---
Subjective Patient with history of pulmonary fibrosis on 2 L of oxygen at home is admitted for COPD exacerbation and patient has significant improvement patient is doing well and patient is on 2 L of oxygen patient is still quite weak will need physical therapy evaluation 11/14/2017 Respiratory status significantly improved probably can be discharged tomorrow patient who has a [place] catheter which will be removed, voiding trail, PT or OT consultation. Constitutional: Denied any fatigue denied any fever. Cardio vascular: denied any chest pain, palpitations Gastrointestinal denied any nausea vomiting Pulmonary: Significantly improved her status of breath Neurologic denied any new focal deficits Objective - Vital Signs Vital signs: Vital Signs Temp 97.1 F L 11/14/17 07:00 Pulse 77 11/14/17 07:00 Resp 18 11/14/17 07:00 BP 133/75 11/14/17 07:00 Pulse Ox 99 11/14/17 07:00 Intake & Output 11/13/17 11/14/17 11/14/17 18:59 06:59 18:59 Output Total 500 900 Balance -500 -900 Output: Urine 500 900 Other: Voiding Method Indwelling Catheter Indwelling Catheter Indwelling Catheter - Exam PHYSICAL EXAMINATION: GENERAL: The patient is alert and oriented x3, not in any acute distress. Well developed, well nourished. Lethargic HEENT: Pupils are round and equally reacting to light. EOMI. No scleral icterus. No conjunctival pallor. Normocephalic, atraumatic. No pharyngeal erythema. No thyromegaly. CARDIOVASCULAR: S1 and S2 present. No murmurs, rubs, or gallops. PULMONARY: Chest is clear to auscultation, no wheezing or crackles. ABDOMEN: Soft, nontender, nondistended, normoactive bowel sounds. No palpable organomegaly. MUSCULOSKELETAL: No joint swelling or deformity. EXTREMITIES: No cyanosis, clubbing, or pedal edema. NEUROLOGICAL: Gross neurological examination did not reveal any focal deficits. SKIN: No rashes. - Labs CBC & Chem 7: 11/13/17 07:53 11/13/17 07:53 Labs: Microbiology - Last 24 Hours (Table) 11/11/17 12:05 Blood Culture - Preliminary Blood No Growth after 48 hours Assessment and Plan Plan: -Acute on chronic hypoxic respiratory failure: Secondary to COPD exacerbation patient with systemic steroids which will be tapered and patient is doing much better today -Tracheal bronchitis -Hypertension -Dyslipidemia -Generalized weakness secondary to dehydration patient's diuretic therapy will be held the patient is being continued on IV fluids. -Atrial fibrillation on anticoagulation -Shingles of bilateral buttocks for which patient is on antibiotics which will be continued -Osteoarthritis -Anxiety disorder -Morbid obesity, plan is to continue with antibiotics inhalational steroids systemic strides which will be tapered
[2017-11-14] MEDS: SODIUM CHLORIDE 0.9% 1,000 ML IV SCH (12:46)
[2017-11-14] MEDS: LEVOFLOXACIN 750MG-D5W PMX 750 MG in DEXTROSE/WATER 1 150ML.BAG IVPB SCH (14:22)
--- NOTE | 2017-11-14 14:26 | P.PN ---
Subjective Progress Note Date: 11/14/17 Principal diagnosis: acute on chronic hypoxic respiratory failure secondary to interstitial pulmonary fibrosis. This is a very pleasant 86-year-old female patient who follows with Dr. Boss as her primary care physician. She has a history of morbid obesity, osteoarthritis, chronic venous stasis of the lower extremity with cellulitis, atrial fibrillation anticoagulated with Eliquis, hyperlipidemia, anxiety, chronic pain syndrome. 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 Mcintyre in our office for the same. Her last PFT in October 2016 revealed moderately severe restrictive lung disease along with moderately severe diffusion defect. She was last seen there in August 2017. At that time she did have some complaints of chronic weakness and her ACTH stim test was negative. She had also been diagnosed with shingles approximately 3 weeks ago. She presented here to the emergency room yesterday with a progressive weakness and unable to get up out of bed. She normally can ambulate with a walker. She denied any worsening shortness of breath, cough or congestion. No nausea, vomiting or diarrhea. Her chest x-ray showed new midlung persistent patchy opacity concerning for a pneumonia on top of her superimposed interstitial lung disease. No leukocytosis. Hemoglobin 11.5. Creatinine 0.63. Influenza screen is negative. Urinalysis negative. She has been afebrile. Maintaining good O2 saturations in the upper 90s on 2 L/m per nasal cannula. Hemodynamically stable. She is seen today in consultation on the regular medical floor. She is able to lay flat in bed. No worsening shortness of breath. No cough or congestion. No chills or night sweats. She is quite weak and needs assistance 2 to transfer from the bed to the chair. The patient is seen again today 11/13/2017 in follow-up in the regular medical floor. She is more awake and alert today as compared to yesterday. She denies any worsening shortness of breath, cough or congestion. She continues to maintain good O2 saturations in the upper 90s on 2 L/m per nasal cannula. She' s been afebrile. No tachycardia. No tachypnea. Hemodynamically stable. No leukocytosis. Blood culture reveals no growth to date. She does remain quite weak. She did attempt to get up in the chair with physical therapy. Her only complaint currently is that of itching. She is receiving calamine lotion. Reevaluated today on 11/14/2017, continues to steadily improve, less and less weakness noted. Patient seems to be doing better and responding well to steroids. Denies any shortness of breath, no cough, no wheezing, remains on oxygen with 2 L/m nasal cannula, and her O2 saturation is in the 90s. Continues to have Velcro rales and crackles on physical examination bilaterally. Her stiffness and joints headaches seem to be better with the steroids.labs were reviewed including her CBC and basic metabolic profile. Sodium is a bit on the low side. Objective - Vital Signs Vital signs: Vital Signs Temp 97.1 F L 11/14/17 07:00 Pulse 77 11/14/17 07:00 Resp 18 11/14/17 07:00 BP 133/75 11/14/17 07:00 Pulse Ox 99 11/14/17 07:00 Intake & Output 11/13/17 11/14/17 11/14/17 18:59 06:59 18:59 Output Total 500 900 Balance -500 -900 Output: Urine 500 900 Other: Voiding Method Indwelling Catheter Indwelling Catheter Indwelling Catheter - Exam GENERAL EXAM: Morbidly obese, weak, in no apparent distress. HEAD: Normocephalic. Markings from previous skin cancer on the right face and forehead EYES: Normal reaction of pupils, equal size. NOSE: Clear with pink turbinates. THROAT: No erythema or exudates. NECK: No masses, no JVD. CHEST: No chest wall deformity. LUNGS: Equal air entry with coarse crackles in the bilateral posterior bases. CVS: S1 and S2 normal with no audible murmur, irregular rhythm. ABDOMEN: Obese, normal bowel sounds, no guarding or rigidity. SPINE: No scoliosis or deformity SKIN: Recent shingles on the buttocks. CENTRAL NERVOUS SYSTEM: No focal deficits, tone is normal in all 4 extremities. EXTREMITIES: There are changes of chronic venous stasis of the lower extremities. 1-2+ edema. No clubbing, no cyanosis. Peripheral pulses are intact. - Labs CBC & Chem 7: 11/13/17 07:53 11/13/17 07:53 Labs: Microbiology - Last 24 Hours (Table) 11/11/17 12:05 Blood Culture - Preliminary Blood No Growth after 72 hours Assessment and Plan Assessment: #1 Generalized weakness secondary to dehydration and persistent pain secondary to shingles on the buttocks. #2 acute on Chronic hypoxic respiratory failure secondary to interstitial pulmonary fibrosis maintained on O2 in the outpatient setting at 2 L/m per nasal cannula. #3 Morbid obesity. #4 Atrial fibrillation, anticoagulated with Eliquis. #5 Skin cancer to the face. #6 Hypertension. #7 Osteoarthritis. #8 Osteoarthritis with previous bilateral knee replacements. #9 Anxiety. #10 Poor overall functional performance based on the above-mentioned multiple comorbidities. Consider discharge planning to a facility, overall prognosis and clinical picture is guarded. Time with Patient: Less than 30
[2017-11-14] MEDS: diphenhydrAMINE 25 MG CAP PO PRN (18:36)
[2017-11-14 20:58] LABS: Glucose,Whole Blood 236 mg/dL (75-99)
[2017-11-15 07:33] LABS: HCT 36.7 % (34.0-46.0); HGB 11.7 gm/dL (11.4-16.0); MCH 31.6 pg (25.0-35.0); MCHC 31.8 g/dL (31.0-37.0); MCV 99.5 fL (80.0-100.0); Macrocytosis Slight; Mean Platelet Volume 7.6; Platelet Count 210 k/uL (150-450); RBC 3.69 m/uL (3.80-5.40); RDW 15.6 % (11.5-15.5)
[2017-11-15 07:47] VITALS: BP 136/74; PULSE 81; RESP 16; TEMP 97.7
[2017-11-15 07:47] LABS: Anion Gap 6 mmol/L; Blood Urea Nitrogen 27 mg/dL (7-17); Calcium 9.3 mg/dL (8.4-10.2); Carbon Dioxide 31 mmol/L (22-30); Chloride 96 mmol/L (98-107); Glucose 165 mg/dL (74-99); Sodium 133 mmol/L (137-145)
[2017-11-15] MEDS: FLUTICASONE 50MCG/SPRAY NASAL 16GM EA NOSTRIL SCH (08:06)
[2017-11-15] MEDS: PANTOPRAZOLE 40 MG TABLET PO SCH (08:10)
[2017-11-15] MEDS: diphenhydrAMINE 25 MG CAP PO PRN (08:10)
[2017-11-15] MEDS: traMADol 50 MG TAB PO PRN ×2 (08:10→15:01)
[2017-11-15] MEDS: METOPROLOL TARTRATE 25 MG TAB PO SCH (08:11)
[2017-11-15] MEDS: APIXABAN 2.5 MG TABLET PO SCH (08:11)
[2017-11-15] MEDS: methylPREDNISolone SOD SUCCI 40 MG/ML 1 ML VIAL IV SCH (08:11)
[2017-11-15] MEDS: PREGABALIN 75 MG CAP PO SCH (08:20)
--- NOTE | 2017-11-15 09:29 | P.PN ---
Subjective Progress Note Date: 11/15/17 Principal diagnosis: Acute on chronic hypoxic respiratory failure secondary to interstitial pulmonary fibrosis This is a very pleasant 86-year-old female patient who follows with Dr. Boss as her primary care physician. She has a history of morbid obesity, osteoarthritis, chronic venous stasis of the lower extremity with cellulitis, atrial fibrillation anticoagulated with Eliquis, hyperlipidemia, anxiety, chronic pain syndrome. 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 Mcintyre in our office for the same. Her last PFT in October 2016 revealed moderately severe restrictive lung disease along with moderately severe diffusion defect. She was last seen there in August 2017. At that time she did have some complaints of chronic weakness and her ACTH stim test was negative. She had also been diagnosed with shingles approximately 3 weeks ago. She presented here to the emergency room yesterday with a progressive weakness and unable to get up out of bed. She normally can ambulate with a walker. She denied any worsening shortness of breath, cough or congestion. No nausea, vomiting or diarrhea. Her chest x-ray showed new midlung persistent patchy opacity concerning for a pneumonia on top of her superimposed interstitial lung disease. No leukocytosis. Hemoglobin 11.5. Creatinine 0.63. Influenza screen is negative. Urinalysis negative. She has been afebrile. Maintaining good O2 saturations in the upper 90s on 2 L/m per nasal cannula. Hemodynamically stable. She is seen today in consultation on the regular medical floor. She is able to lay flat in bed. No worsening shortness of breath. No cough or congestion. No chills or night sweats. She is quite weak and needs assistance 2 to transfer from the bed to the chair. The patient is seen again today 11/13/2017 in follow-up in the regular medical floor. She is more awake and alert today as compared to yesterday. She denies any worsening shortness of breath, cough or congestion. She continues to maintain good O2 saturations in the upper 90s on 2 L/m per nasal cannula. She' s been afebrile. No tachycardia. No tachypnea. Hemodynamically stable. No leukocytosis. Blood culture reveals no growth to date. She does remain quite weak. She did attempt to get up in the chair with physical therapy. Her only complaint currently is that of itching. She is receiving calamine lotion. Reevaluated today on 11/14/2017, continues to steadily improve, less and less weakness noted. Patient seems to be doing better and responding well to steroids. Denies any shortness of breath, no cough, no wheezing, remains on oxygen with 2 L/m nasal cannula, and her O2 saturation is in the 90s. Continues to have Velcro rales and crackles on physical examination bilaterally. Her stiffness and joints headaches seem to be better with the steroids.labs were reviewed including her CBC and basic metabolic profile. Sodium is a bit on the low side. On 11/15/2017 patient seen again. Denies any acute distress. Denies any dyspnea. Compliant with her incentive spirometer, able to achieve 500-750 today. Remains afebrile, on 2 L per nasal cannula with O2 sat between 98 and 100%. Vital signs are stable. No acute complaints. Lung sounds are positive for coarse rales, more prominent over left lower posterior lobe. Remains generally weak, has not been up out of bed yet. Discharge planning is in progress for subacute rehab placement. Today's lab work has been reviewed, WBC within normal limits at 10, hemoglobin is 11.7, serum sodium is 133, serum potassium is 5.0, chloride is 96, carbon dioxide is 31, B1 is 27, creatinine 0.70. She denies any fever or chills, no cough or congestion. Objective - Vital Signs Vital signs: Vital Signs Temp 97.7 F 11/15/17 07:00 Pulse 81 11/15/17 07:00 Resp 16 11/15/17 07:00 BP 136/74 11/15/17 07:00 Pulse Ox 100 11/15/17 07:00 Intake & Output 11/14/17 11/15/17 11/15/17 18:59 06:59 18:59 Intake Total 830 Output Total 700 850 Balance -700 -20 Intake: Oral 830 Output: Urine 700 850 Other: Voiding Method Indwelling Catheter Indwelling Catheter # Bowel Movements 2 1 - Exam GENERAL EXAM: Morbidly obese, weak, in no apparent distress. HEAD: Normocephalic. Markings from previous skin cancer on the right face and forehead EYES: Normal reaction of pupils, equal size. NOSE: Clear with pink turbinates. THROAT: No erythema or exudates. NECK: No masses, no JVD. CHEST: No chest wall deformity. LUNGS: Equal air entry with coarse crackles in the bilateral posterior bases, or prominent over left lower lobe. CVS: S1 and S2 normal with no audible murmur, irregular rhythm. ABDOMEN: Obese, normal bowel sounds, no guarding or rigidity. SPINE: No scoliosis or deformity SKIN: Recent shingles on the buttocks. CENTRAL NERVOUS SYSTEM: No focal deficits, tone is normal in all 4 extremities. EXTREMITIES: There are changes of chronic venous stasis of the lower extremities. 1-2+ edema. No clubbing, no cyanosis. Peripheral pulses are intact. - Labs CBC & Chem 7: 11/15/17 06:58 11/15/17 06:58 Labs: Abnormal Lab Results - Last 24 Hours (Table) 11/14/17 11/15/17 11/15/17 Range/Units 20:37 06:58 06:58 RBC 3.69 L (3.80-5.40) m/uL RDW 15.6 H (11.5-15.5) % Sodium 133 L (137-145) mmol/L Chloride 96 L (98-107) mmol/L Carbon Dioxide 31 H (22-30) mmol/L BUN 27 H (7-17) mg/dL Glucose 165 H (74-99) mg/dL POC Glucose (mg/dL) 236 H (75-99) mg/dL Microbiology - Last 24 Hours (Table) 11/11/17 12:05 Blood Culture - Preliminary Blood No Growth after 72 hours Assessment and Plan Plan: Assessment: #1 Generalized weakness secondary to dehydration and persistent pain secondary to shingles on the buttocks. #2 acute on Chronic hypoxic respiratory failure secondary to interstitial pulmonary fibrosis maintained on O2 in the outpatient setting at 2 L/m per nasal cannula. #3 Morbid obesity. #4 Atrial fibrillation, anticoagulated with Eliquis. #5 Skin cancer to the face. #6 Hypertension. #7 Osteoarthritis. #8 Osteoarthritis with previous bilateral knee replacements. #9 Anxiety. #10 Poor overall functional performance based on the above-mentioned multiple comorbidities. Plan: No acute events overnight, no acute complaints. Vital signs are stable, patient is afebrile. We can probably switch to IV Levaquin to by mouth, switch IV Solu-Medrol to oral prednisone. Patient remains stable. Remains very generally weak. She will need physical therapy. Increase activity as tolerated , continue encouraging incentive spirometer. Discharge planning is in progress for discharge to subacute rehab. From pulmonary standpoint patient is stable for discharge to rehab once the arrangements are in place. I performed a history & physical examination of the patient and discussed their management with my nurse practitioner, Josephine Ac. I reviewed the nurse practitioner's note and agree with the documented findings and plan of care. Lung sounds are positive for coarse rales over bilateral bases, left greater than the right. The findings and the impression was discussed with the patient. I attest to the documentation by the nurse practitioner. Time with Patient: Less than 30
[2017-11-15] MEDS ORDERED: LEVOFLOXACIN 750 MG TAB PO SCH (09:30)
--- NOTE | 2017-11-15 11:31 | P.DS ---
Providers Date of admission: 11/11/17 13:30 Expected date of discharge: 11/15/17 Attending physician: Angel Boss Consults: 11/12/17 08:51 Consult Physician Routine Consulting Provider: London Mcintyre Consult Reason/Comments: Pneumonia, pt request Do you want consulting provider notified?: Yes Primary care physician: Angel Boss [facility] Course: 86-year-old female who presented to the emergency room with a chief complaint of generalized weakness and pain in her buttocks from recent diagnosis of shingles. The patient was diagnosed with shingles approximately 3 weeks ago at her primary care physician's office. She has completed her course of treatment. The patient states she has been having difficulty ambulating at home and getting around. She states that she feels very weak. Denies chest pain or pressure. Denies shortness of breath or coughing. Denies nausea or vomiting. Denies dizziness or lightheadedness. The patient has a history of pulmonary fibrosis and is maintained on daily prednisone and wears 2 L oxygen at home. She also has a history of atrial fibrillation, gastroesophageal reflux disease, hypertension, and osteoarthritis with previous bilateral total knee arthroplasties. She also has a history of anxiety and depression. Chest x-ray: New midlung persistent patchy opacity concerning for pneumonia. Mild interstitial prominence which appears decreased from the prior exam there are to relate to mild interstitial cardiogenic pulmonary edema EKG: atrial fibrillation with controlled rate. Rate 86. Laboratory data: WBC 10.1. Hemoglobin 13. Platelet count 162. Sodium 133. Potassium 4.6. BUN 24. Creatinine 0.70. GFR > 60. Glucose . Magnesium 2.0. Testing for influenza A and B was negative. Urinalysis unremarkable. An indwelling urinary catheter has been inserted secondary to urinary retention. The patient was admitted to the hospital under the care of Dr. Boss. Consultations were placed to pulmonology. The patient was started on Lyrica 75 mg twice a day for her pain associated with her shingles. She was evaluated by pulmonary while in the hospital. She received IV Levaquin which has since been transitioned to oral. The patient was started on IV steroids for possible COPD exacerbation which have since been transitioned to oral. The patient takes 10 mg prednisone at home daily for pulmonary fibrosis. The patient will complete a prednisone taper at the time of discharge and then will resume her normal dose of prednisone 10 mg daily. She did require a urinary catheter for urinary retention which has since been discontinued. The patient was hyponatremic with a sodium of 131. She was also slightly dehydrated. Her diuretics have been held during hospitalization. They will continue to be held at the time of discharge and may be resumed on an outpatient basis after evaluation by her primary care physician. The patient was evaluated by physical therapy during hospitalization and recommend subacute rehab at the time of discharge. The patient was deemed stable for discharge today to subacute rehab per Dr. Boss. She is to follow up on an outpatient basis. DISCHARGE DIAGNOSIS: Left lobe community-acquired pneumonia, present on admission, sputum culture pending Generalized weakness and inability to ambulate secondary to painful buttocks with recent shingles diagnosis Recent diagnosis of shingles in the outpatient setting, patient completed course of treatment Postherpetic pain of buttocks Atrial fibrillation, maintained on long-term anticoagulation with Eliquis Urinary retention requiring indwelling urinary catheter Pulmonary fibrosis, maintained on daily prednisone Chronic hypoxic respiratory failure requiring supplemental oxygen at home secondary to above Essential hypertension Osteoarthritis with previous bilateral total knee arthroplasty Anxiety, unspecified Depression, unspecified Morbid obesity: BMI 45.7 Nurse practitioner note has been reviewed by physician. Signing provider agrees with the documented findings, assessment, and plan of care. Patient Condition at Discharge: Stable Plan - Discharge Summary Discharge Rx Participant: No New Discharge Prescriptions: New Albuterol Nebulized [Ventolin Nebulized] 2.5 mg INHALATION RT-QID PRN nebu PRN Reason: Shortness Of Breath Or Wheezing aMILoride HCL 5 mg PO DAILY #30 tablet diphenhydrAMINE [Benadryl] 25 mg PO TID PRN cap PRN Reason: Moderate To Severe Itching Levofloxacin [Levaquin] 750 mg PO DAILY #7 tab predniSONE See Taper PO DIRECTED #30 tab Pregabalin [Lyrica] 75 mg PO BID cap Continue Hydrocortisone Cream [Hydrocortisone 2.5% Cream] 1 applic TOPICAL HS PRN PRN Reason: Rash Apixaban [Eliquis] 2.5 mg PO BID #60 tablet Metoprolol Tartrate [Lopressor] 25 mg PO BID #60 tab Nitroglycerin Sl Tabs [Nitrostat] 0.4 mg SUBLINGUAL Q5M PRN #20 tab PRN Reason: Chest Pain Fluticasone Nasal [place] [Flonase Nasal [place]] 1 spray EA NOSTRIL DAILY ALPRAZolam [Xanax] 0.5 mg PO Q8H PRN PRN Reason: Anxiety traMADol HCL [Ultram] 50 mg PO Q8H PRN PRN Reason: Pain predniSONE 10 mg PO DAILY #0 Discontinued aMILoride-HCTZ 5-50 mg [Moduretic 5-50] 1 tab PO DAILY Discharge Medication List Hydrocortisone Cream [Hydrocortisone 2.5% Cream] 1 applic TOPICAL HS PRN [History] Apixaban [Eliquis] 2.5 mg PO BID #60 tablet 09/25/17 [Rx] Metoprolol Tartrate [Lopressor] 25 mg PO BID #60 tab 09/25/17 [Rx] Nitroglycerin Sl Tabs [Nitrostat] 0.4 mg SUBLINGUAL Q5M PRN #20 tab 09/25/17 [Rx ] ALPRAZolam [Xanax] 0.5 mg PO Q8H PRN 11/11/17 [History] Fluticasone Nasal [place] [Flonase Nasal [place]] 1 spray EA NOSTRIL DAILY 11/11/17 [History] traMADol HCL [Ultram] 50 mg PO Q8H PRN 11/11/17 [History] Albuterol Nebulized [Ventolin Nebulized] 2.5 mg INHALATION RT-QID PRN nebu 02/25 [Rx] Levofloxacin [Levaquin] 750 mg PO DAILY #7 tab 11/15/17 [Rx] Pregabalin [Lyrica] 75 mg PO BID cap 11/15/17 [Rx] aMILoride HCL 5 mg PO DAILY #30 tablet 11/15/17 [Rx] diphenhydrAMINE [Benadryl] 25 mg PO TID PRN cap 11/15/17 [Rx] predniSONE 10 mg PO DAILY #0 11/15/17 [Rx] predniSONE See Taper PO DIRECTED #30 tab 11/15/17 [Rx] Follow up Appointment(s)/Referral(s): Angel Boss DO [Primary Care Provider] - 1 Week (1 week after DC from [facility] London Mcintyre DO [Doctor of Osteopathic Medicine] - 2 Weeks Ambulatory/Diagnostic Orders: Basic Metabolic Panel [LAB.AMB] Time Frame: 1 Week, Location: Determined By Patient Activity/Diet/Wound Care/Special Instructions: Patient is to take prednisone 40 mg 4 days, 30 mg 3 days, 20 mg 2 days, and then she is to resume her normal home dose of daily prednisone at 10 mg. Patient was taking amiloride-hydrochlorothiazide (5-50mg) at the time of admission. Hydrochlorothiazide was discontinued secondary to hyponatremia and dehydration. Patient may resume amiloride. Patient to discuss restarting hydrochlorothiazide at her follow-up visit with Dr. Boss. Heart healthy diet Activity as tolerated Oxygen at 2 L nasal cannula Discharge Disposition: TRANSFER TO SNF/ECF
[2017-11-16] MEDS ORDERED: predniSONE 20 MG TAB PO SCH (09:00)
== END 2017-11-15 15:10 | DRG 193 ==
LOC: EC 10:11 → 4MS4W 13:30
PROVIDERS: ADMIT Family Medicine; ATTEND Family Medicine
DX: J18.9 Pneumonia, unspecified organism (principal); J96.21 Acute and chronic respiratory failure with hypoxia; I48.91 Unspecified atrial fibrillation; J84.112 Idiopathic pulmonary fibrosis; B02.8 Zoster with other complications; E66.01 Morbid (severe) obesity due to excess calories; E86.0 Dehydration; Z99.81 Dependence on supplemental oxygen; E78.5 Hyperlipidemia, unspecified; Z68.42 Body mass index [BMI] 45.0-49.9, adult; F32.9 Major depressive disorder, single episode, unspecified; F41.9 Anxiety disorder, unspecified; G89.4 Chronic pain syndrome; I10 Essential (primary) hypertension; I87.8 Other specified disorders of veins; K21.9 Gastro-esophageal reflux disease without esophagitis; M19.90 Unspecified osteoarthritis, unspecified site; Z79.01 Long term (current) use of anticoagulants; Z79.52 Long term (current) use of systemic steroids; Z79.899 Other long term (current) drug therapy; Z80.3 Family history of malignant neoplasm of breast; Z85.828 Personal history of other malignant neoplasm of skin; Z90.710 Acquired absence of both cervix and uterus; Z96.1 Presence of intraocular lens; Z96.653 Presence of artificial knee joint, bilateral; R33.9 Retention of urine, unspecified
CPT/HCPCS: 36415; 71045; 71046; 80048; 80053; 81003; 83735; 85025; 85027; 85652; 86140; 87040; 87502; 93005; 94760; 96361; 96365; 96375; 99284

== ENCOUNTER 2018-02-16 17:52 | Emergency (ER) | payer MEDICARE, BC ==
[2018-02-16 18:14] VITALS: TEMP 97.4
[2018-02-16] MEDS ORDERED: DIPH,PERTUS(ACELL)TETVAC-LF 0.5 ML VIAL IM ONE (18:28)
--- NOTE | 2018-02-16 18:33 | ED ---
Fall HPI - General Chief Complaint: Fall Stated Complaint: Fall Time Seen by Provider: 02/16/18 17:57 Source: patient, family Mode of arrival: EMS - History of Present Illness Initial Comments: 87-year-old female patient presents to the emergency department today for evaluation after expressing a fall at home. Patient states that she was changing her blouse, states when she took an option lost her balance and fell forward landing on her knees and striking the side of her head on a dresser. The patient denies any loss of consciousness at the time of injury. She denies any current headache, dizziness, weakness, blurred vision, or double vision. Patient states that she is having bilateral knee pain and discomfort. Patient states that she does take a look with. States that she has not started since the injury. She was brought in by EMS. Patient denies any neck pain, back pain , chest pain, shortness of breath, abdominal pain, nausea, vomiting, or difficulties with bowel movements or urination. She is unsure when her last tetanus was given. - Related Data Home Medications Medication Instructions Recorded Confirmed ALPRAZolam [Xanax] 0.5 mg PO Q8H PRN 11/11/17 02/16/18 traMADol HCL [Ultram] 50 mg PO Q8H PRN 11/11/17 02/16/18 Cetirizine HCl [Zyrtec] 10 mg PO DAILY PRN 02/16/18 02/16/18 Furosemide [Lasix] 20 mg PO DAILY 02/16/18 02/16/18 Gabapentin [Neurontin] 100 mg PO DAILY PRN 02/16/18 02/16/18 Meclizine [Antivert] 25 mg PO TID PRN 02/16/18 02/16/18 Ranitidine HCl [Zantac] 150 mg PO AC-[id number] 02/16/18 02/16/18 Previous Rx's Medication Instructions Recorded Apixaban [Eliquis] 2.5 mg PO BID #60 tablet 09/25/17 Metoprolol Tartrate [Lopressor] 25 mg PO BID #60 tab 09/25/17 Albuterol Nebulized [Ventolin 2.5 mg INHALATION RT-QID PRN nebu 11/15/17 Nebulized] aMILoride HCL 5 mg PO DAILY #30 tablet 11/15/17 predniSONE 10 mg PO DAILY #0 11/15/17 Allergies Allergy/AdvReac Type Severity Reaction Status Date / Time aspirin Allergy Rash/Hives Verified 02/16/18 18:21 codeine Allergy Itching Verified 02/16/18 18:21 Iodinated Contrast- Oral and Allergy Anaphylaxis Verified 02/16/18 18:21 IV Dye Review of Systems ROS Statement: Those systems with pertinent positive or pertinent negative responses have been documented in the HPI. ROS Other: All systems not noted in ROS Statement are negative. Past Medical History Past Medical History: Atrial Fibrillation, Cancer, GERD/Reflux, Hypertension, Osteoarthritis (OA), Pneumonia, Respiratory Disorder Additional Past Medical History / Comment(s): Pt admitted 09/23/17 with new onset Afib with RVR, chest pain and chronic hypoxic respiratory failure. 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 History of Any Multi-Drug Resistant Organisms: None Reported Past Surgical History: Back Surgery, Cholecystectomy, Hysterectomy, Joint Replacement, Orthopedic Surgery Additional Past Surgical History / Comment(s): bilateral knee replacements, garrick cataracts/lens implants, bilateral vein stripping, colonoscopy, egd, total hysterectomy, bilateral shoulder sx-bone spurs removed and has implant L shoulder. low back surgery. Past Anesthesia/Blood Transfusion Reactions: Motion Sickness Past Psychological History: Anxiety, Depression Smoking Status: Never smoker Past Alcohol Use History: Rare Past Drug Use History: None Reported - Past Family History Mother Family Medical History: CVA/TIA Father History Unknown: Yes Additional Family Medical History / Comment(s): pt was raised by step father Sister(s) Family Medical History: Cancer Additional Family Medical History / Comment(s): breast cancer General Exam Limitations: no limitations General appearance: alert, in no apparent distress, other (This is a well- developed, obese elderly female patient in no acute distress. Vital signs upon presentation are temperature 97.4F, pulse 92, respirations 16, blood pressure 128/60, pulse ox 97% on room air.) Head exam: Present: other (Patient has 3 cm laceration to the right temporal scalp. Bleeding is currently controlled. No step-off or bony deformity noted to palpation around the wound.) Eye exam: Present: normal appearance, PERRL, EOMI. Absent: scleral icterus, conjunctival injection, nystagmus, periorbital swelling ENT exam: Present: normal exam, normal oropharynx, mucous membranes moist Neck exam: Present: normal inspection, full ROM, other (Nontender, no step-off, no deformity to firm midline palpation of the posterior cervical spine. Full range of motion without pain or limitation.). Absent: tenderness, meningismus, lymphadenopathy Respiratory exam: Present: normal lung sounds bilaterally. Absent: respiratory distress, wheezes, rales, rhonchi, stridor Cardiovascular Exam: Present: regular rate, normal rhythm, normal heart sounds. Absent: systolic murmur, diastolic murmur, rubs, gallop, clicks GI/Abdominal exam: Present: soft, normal bowel sounds. Absent: distended, tenderness, guarding, rebound, rigid Extremities exam: Present: full ROM, tenderness (Bilateral proximal Tib/Fib region.), normal capillary refill, other (See body image). Absent: normal inspection, pedal edema, joint swelling, calf tenderness Back exam: Present: normal inspection. Absent: vertebral tenderness Neurological exam: Present: alert, oriented X3, CN II-XII intact Psychiatric exam: Present: normal affect, normal mood Skin exam: Present: warm, dry, intact, normal color. Absent: rash Expanded 1 - Large hematoma with overlying abrasion. 2 - Abrasion; Hematoma 3 - Abrasion; Ecchymosis Course Vital Signs 02/16/18 02/16/18 18:08 19:45 Temperature 97.4 F L Pulse Rate 92 93 Respiratory 16 16 Rate Blood Pressure 128/60 138/57 O2 Sat by Pulse 97 100 Oximetry Procedures - Laceration Laceration #1 Consent Obtained: verbal consent Indication: laceration Site: scalp Size (cm): 3 Depth: simple, single layer Size of Sutures: other ([place]) Number of Sutures: 3 Patient Tolerated Procedure: well, no complications Medical Decision Making - Medical Decision Making 87 year-old female patient presented to the emergency department today for evaluation after expressing a fall at home. Physical examination did reveal hematoma and abrasions to the bilateral knees, abrasion and ecchymosis to the right shoulder, and a 3 cm laceration to the right temporal scalp. CT of the brain and C-spine was obtained, no acute intracranial or cervical abnormalities were noted. Bilateral knee x-rays were also obtained and showed no acute findings. Laceration to the right scalp was repaired as documented. Did discuss findings and results with the patient and her family. She'll be discharged home at this time to follow-up with her primary care physician for recheck in 1-2 days. Wound management was discussed. Return parameters discussed in detail. She verbalizes understanding and agrees with this plan. - Radiology Data Radiology results: report reviewed, image reviewed 3 views of each knee are obtained. There is bilateral total knee prosthesis. No fracture nor dislocation noted. No focal bone destruction. Components appear in anatomic position. The patella. Intact. There is bilateral anterior calcification in the soft tissues below the patella. This is consistent with old injury. Impression by Dr. Goodman shows no acute abnormality of the left and right knee. CT of the head and cervical spine are performed without contrast. Report was reviewed in its entirety and. 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 No acute intracranial abnormality. Mild chronic small vessel ischemia. No significant change. Spondylotic changes of the cervical spine. No fracture seen. Disposition Clinical Impression: Head injury, Scalp laceration, Contusion of right shoulder, Contusion of right knee, Contusion of left knee, Abrasion of knee, left Disposition: HOME SELF-CARE Condition: Good Instructions: Laceration (ED), Fall Prevention for Older Adults (ED), Head Injury (ED), Contusion in Adults (ED), Staple Care (ED) Additional Instructions: Keep wounds clean and dry. Monitor for signs or symptoms of infection including but not limited to redness, swelling, drainage of pus, fever, or chills. Apply ice to the painful areas. Follow-up with your primary care physician for recheck in 1-2 days. Return here immediately for any new, worsening, or concerning symptoms. Is patient prescribed a controlled substance at d/c from ED?: No Referrals: Angel Boss DO [Primary Care Provider] - 1-2 days Time of Disposition: 20:14
--- NOTE | 2018-02-16 19:03 | CT ---
EXAMINATION TYPE: CT brain deanna orozco DATE OF EXAM: 02/16/2018 COMPARISON: 12/24/[address] scan HISTORY: Fall with headache and neck pain CT DLP: 1512.2 mGycm Automated exposure control for dose reduction was used. TECHNIQUE: CT scan of the head and cervical spine are performed without contrast. FINDINGS: There is cerebral cortical atrophy. There is no mass effect nor midline shift. There is n o sign of intracranial hemorrhage. The calvarium is intact. The cervical vertebra show a very slight anterior subluxation at C4-5. There is narrowing at C5-6 C6- 7 disc spaces and mild spurring of the endplates. Facet joints are intact. There is mild hypertrophic facet arthropathy. Skull base appears intact. There is no sign of a fracture. IMPRESSION: Cerebral atrophy. No acute intracranial abnormality. Mild chronic small vessel ischemia. No significa nt change. Spondylotic changes in the cervical spine. No fracture seen.
--- NOTE | 2018-02-16 19:25 | XR ---
EXAMINATION TYPE: XR knee complete bilateral DATE OF EXAM: 02/16/2018 COMPARISON: NONE HISTORY: Knee pain TECHNIQUE: 3 views of each knee FINDINGS: There are bilateral total knee prosthesis. I see no fracture nor dislocation. I see no foca l bone destruction. Components appear in anatomic position. The patella appear intact. There is bilat eral anterior calcification in the soft tissues below the patella. This is consistent with old injury . IMPRESSION: No acute abnormality of the left and right knee.
[2018-02-16] MEDS ORDERED: ACETAMINOPHEN TAB 500 MG TAB PO STA (20:14)
[2018-02-16 21:15] VITALS: BP 125/57; PULSE 89; RESP 15
== END 2018-02-16 21:15 | disposition home or self-care (01) ==
LOC: EC 17:52
DX: S01.01XA Laceration without foreign body of scalp, initial encounter (principal); S40.011A Contusion of right shoulder, initial encounter; S80.02XA Contusion of left knee, initial encounter; S80.01XA Contusion of right knee, initial encounter; I67.82 Cerebral ischemia; M47.812 Spondylosis without myelopathy or radiculopathy, cervical region; I10 Essential (primary) hypertension; K21.9 Gastro-esophageal reflux disease without esophagitis; J96.11 Chronic respiratory failure with hypoxia; E66.9 Obesity, unspecified; Z79.52 Long term (current) use of systemic steroids; Z79.899 Other long term (current) drug therapy; Z88.5 Allergy status to narcotic agent; Z88.6 Allergy status to analgesic agent; Z91.041 Radiographic dye allergy status; Z99.81 Dependence on supplemental oxygen; Z96.653 Presence of artificial knee joint, bilateral; Z87.39 Personal history of other diseases of the musculoskeletal system and connective tissue; Z68.41 Body mass index [BMI] 40.0-44.9, adult; Z23 Encounter for immunization; W01.190A Fall on same level from slipping, tripping and stumbling with subsequent striking against furniture, initial encounter; Y93.89 Activity, other specified; Y92.009 Unspecified place in unspecified non-institutional (private) residence as the place of occurrence of the external cause
CPT/HCPCS: 12002; 70450; 72125; 90471; 90715; 99284

== ENCOUNTER 2018-07-05 18:12 | Emergency (ER) | payer MEDICARE, BC ==
--- NOTE | 2018-07-05 19:49 | ED ---
General Adult HPI - General Chief complaint: Extremity Problem,Nontraumatic Stated complaint: leg pain Time Seen by Provider: 07/05/18 18:30 Source: patient, RN notes reviewed Mode of arrival: EMS Limitations: no limitations - History of Present Illness Initial comments: 87-year-old female with a history of A. fib, hypertension, osteoarthritis, GERD presents to the emergency department for a chief complaint of pain to the right leg 3 days. Patient states the pain is worse when she ambulates. Patient states that it was very painful when the medics were touching the back of the leg. Patient is currently on Eliquis for A. fib. Patient denies any injuries to the leg. Patient denies any fevers or chills at home. Patient has no other complaints at this time including shortness of breath, chest pain, abdominal pain, nausea or vomiting, headache, or visual changes. - Related Data Home Medications Medication Instructions Recorded Confirmed traMADol HCL [Ultram] 50 mg PO Q8H PRN 11/11/17 07/05/18 Furosemide [Lasix] 20 mg PO Q48H 02/16/18 07/05/18 Meclizine [Antivert] 25 mg PO TID PRN 02/16/18 07/05/18 Ranitidine HCl [Zantac] 150 mg PO [id number] 02/16/18 07/05/18 Previous Rx's Medication Instructions Recorded Apixaban [Eliquis] 2.5 mg PO BID #60 tablet 09/25/17 Metoprolol Tartrate [Lopressor] 25 mg PO BID #60 tab 09/25/17 aMILoride HCL 5 mg PO DAILY #30 tablet 11/15/17 predniSONE 10 mg PO DAILY #0 11/15/17 Cephalexin [Keflex] 500 mg PO Q6H 10 Days cap 07/05/18 Allergies Allergy/AdvReac Type Severity Reaction Status Date / Time aspirin Allergy Rash/Hives Verified 07/05/18 18:43 codeine Allergy Itching Verified 07/05/18 18:43 Iodinated Contrast- Oral and Allergy Anaphylaxis Verified 07/05/18 18:43 IV Dye Review of Systems ROS Statement: Those systems with pertinent positive or pertinent negative responses have been documented in the HPI. ROS Other: All systems not noted in ROS Statement are negative. Past Medical History Past Medical History: Atrial Fibrillation, Cancer, GERD/Reflux, Hypertension, Osteoarthritis (OA), Pneumonia, Respiratory Disorder Additional Past Medical History / Comment(s): Pt admitted 09/23/17 with new onset Afib with RVR, chest pain and chronic hypoxic respiratory failure. 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 History of Any Multi-Drug Resistant Organisms: None Reported Past Surgical History: Back Surgery, Cholecystectomy, Hysterectomy, Joint Replacement, Orthopedic Surgery Additional Past Surgical History / Comment(s): bilateral knee replacements, garrick cataracts/lens implants, bilateral vein stripping, colonoscopy, egd, total hysterectomy, bilateral shoulder sx-bone spurs removed and has implant L shoulder. low back surgery. Past Anesthesia/Blood Transfusion Reactions: Motion Sickness Past Psychological History: Anxiety, Depression Smoking Status: Never smoker Past Alcohol Use History: Rare Past Drug Use History: None Reported - Past Family History Mother Family Medical History: CVA/TIA Father History Unknown: Yes Additional Family Medical History / Comment(s): pt was raised by step father Sister(s) Family Medical History: Cancer Additional Family Medical History / Comment(s): breast cancer General Exam Limitations: no limitations General appearance: alert, in no apparent distress Head exam: Present: atraumatic, normocephalic, normal inspection Eye exam: Present: normal appearance, PERRL, EOMI. Absent: scleral icterus, conjunctival injection, periorbital swelling ENT exam: Present: normal exam, mucous membranes moist Neck exam: Present: normal inspection, full ROM. Absent: tenderness, meningismus, lymphadenopathy Respiratory exam: Present: normal lung sounds bilaterally. Absent: respiratory distress, wheezes, rales, rhonchi, stridor Cardiovascular Exam: Present: regular rate, normal rhythm, normal heart sounds. Absent: systolic murmur, diastolic murmur, rubs, gallop, clicks Extremities exam: Present: full ROM (Patient is able to move lower extremities without difficulty), tenderness (Tenderness to right calf and right lateral anterior lower leg), normal capillary refill (Capillary refill less than 2 seconds and pedal pulse 2+ in the right lower extremity), calf tenderness ( Tenderness noted in the right calf as well as the anterior lateral aspect of the right lower leg), other (Mild erythema noted of the bilateral lower extremities.) Neurological exam: Present: alert, oriented X3, CN II-XII intact Psychiatric exam: Present: normal affect, normal mood Course Vital Signs 07/05/18 07/05/18 18:21 20:24 Temperature 97.5 F L Pulse Rate 83 83 Respiratory 18 16 Rate Blood Pressure 152/82 177/81 O2 Sat by Pulse 100 99 Oximetry EKG Findings - EKG Comments: EKG Findings:: Atrial fibrillation, ventricular rate 87, QRS duration 66, QTC 478 Medical Decision Making - Medical Decision Making 87-year-old female presents to the emergency department for a chief complaint of right lower extremity pain 3 days. Patient states it is painful to ambulate. It is also painful with palpation. Patient is currently on Eliquis for A. fib. On exam patient has mild erythema of the right lower leg with tenderness consistent with cellulitis. CBC and CMP unremarkable. CRP 14. X- ray shows pattern consistent with advanced interstitial and alveolar phase pulmonary edema. This is chronic for patient and she is not complaining of any increased shortness of breath. Ultrasound negative for DVT. At this time, it is felt the patient can be discharged home with oral antibiotics. She is to monitor for any worsening symptoms or signs of fever and return if these occur. Otherwise she is to follow up with primary care in 1-[address] Muller also saw the patient. - Lab Data Result diagrams: 07/05/18 19:22 07/05/18 19:22 Lab Results 07/05/18 07/05/18 Range/Units 19:22 19:22 WBC 7.9 (3.8-10.6) k/uL RBC 3.85 (3.80-5.40) m/uL Hgb 12.1 (11.4-16.0) gm/dL Hct 38.4 (34.0-46.0) % MCV 99.8 (80.0-100.0) fL MCH 31.4 (25.0-35.0) pg MCHC 31.4 (31.0-37.0) g/dL RDW 14.3 (11.5-15.5) % Plt Count 204 (150-450) k/uL Neutrophils % 63 % Lymphocytes % 25 % Monocytes % 8 % Eosinophils % 3 % Basophils % 0 % Neutrophils # 4.9 (1.3-7.7) k/uL Lymphocytes # 2.0 (1.0-4.8) k/uL Monocytes # 0.6 (0-1.0) k/uL Eosinophils # 0.3 (0-0.7) k/uL Basophils # 0.0 (0-0.2) k/uL Hypochromasia Slight Macrocytosis Slight Sodium 133 L (137-145) mmol/L Potassium 5.4 H (3.5-5.1) mmol/L Chloride 95 L (98-107) mmol/L Carbon Dioxide 29 (22-30) mmol/L Anion Gap 9 mmol/L BUN 19 H (7-17) mg/dL Creatinine 0.71 (0.52-1.04) mg/dL Est GFR (CKD-EPI)AfAm 90 (>60 ml/min/1.73 sqM) Est GFR (CKD-EPI)NonAf 78 (>60 ml/min/1.73 sqM) Glucose 109 H (74-99) mg/dL Calcium 9.4 (8.4-10.2) mg/dL Total Bilirubin 1.2 (0.2-1.3) mg/dL AST 50 H (14-36) U/L ALT 26 (9-52) U/L Alkaline Phosphatase 65 (38-126) U/L C-Reactive Protein 14.1 H (<10.0) mg/L Total Protein 8.2 (6.3-8.2) g/dL Albumin 3.9 (3.5-5.0) g/dL Disposition Clinical Impression: Cellulitis Disposition: HOME SELF-CARE Condition: Good Instructions: Cellulitis (ED) Additional Instructions: Please take Keflex as directed. Please monitor for worsening symptoms such as fevers and return if these occur. Follow-up with primary care for a recheck in 1-2 days. Prescriptions: Cephalexin [Keflex] 500 mg PO Q6H 10 Days cap Is patient prescribed a controlled substance at d/c from ED?: No Referrals: Angel Boss DO [Primary Care Provider] - 1-2 days Time of Disposition: 21:08
[2018-07-05 19:53] LABS: Basophils % (A) 0 %; Eosinophils # (A) 0.3 k/uL (0-0.7); Eosinophils % (A) 3 %; HCT 38.4 % (34.0-46.0); HGB 12.1 gm/dL (11.4-16.0); Hypochromasia Slight; Lymphocytes % (A) 25 %; MCH 31.4 pg (25.0-35.0); MCHC 31.4 g/dL (31.0-37.0); MCV 99.8 fL (80.0-100.0); Macrocytosis Slight; Mean Platelet Volume 7.5; Monocytes # (A) 0.6 k/uL (0-1.0); Monocytes % (A) 8 %; Neutrophils # (A) 4.9 k/uL (1.3-7.7); Neutrophils % (A) 63 %; Platelet Count 204 k/uL (150-450); RBC 3.85 m/uL (3.80-5.40); RDW 14.3 % (11.5-15.5); WBC 7.9 k/uL (3.8-10.6)
--- NOTE | 2018-07-05 19:55 | XR ---
EXAMINATION: XR chest 2V DATE AND TIME: 07/05/2018 7:44 PM CLINICAL INDICATION: Pain TECHNIQUE: AP and lateral COMPARISON: 11/12/2017 FINDINGS: Cardiac silhouette is moderately enlarged, unchanged. There is widespread marked obscuration of the pulmonary vasculature by a fine reticular pattern of in creased density which reaches the periphery as septal lines. The pattern is consistent with advanced interstitial and alveolar phase pulmonary edema, presumably cardiogenic etiology. Clinical exclusion of pneumonia will be useful in this radiographic setting. Pleural spaces appear negative. No definite acute bone or soft tissue findings; overlying soft tissues are prominent. IMPRESSION: As discussed, the radiographic findings are consistent with a clinical diagnosis of advanced intersti tial/alveolar phase cardiogenic pulmonary edema.
[2018-07-05 20:04] LABS: Albumin 3.9 g/dL (3.5-5.0); C Reactive Protein 14.1 mg/L (<10.0); Calcium 9.4 mg/dL (8.4-10.2); Total Bilirubin 1.2 mg/dL (0.2-1.3); Total Protein 8.2 g/dL (6.3-8.2)
[2018-07-05 20:05] LABS: Potassium 5.4 mmol/L (3.5-5.1)
[2018-07-05] MEDS ORDERED: CEPHALEXIN 500MG STARTER PACK 4 CAP BTL PO STA (21:14)
--- NOTE | 2018-07-05 21:30 | US ---
EXAMINATION TYPE: US venous doppler duplex LE RT DATE OF EXAM: 07/05/2018 8:55 PM COMPARISON: NONE CLINICAL HISTORY: Pain. edema right leg. Exam limitations due to body habitus. SIDE PERFORMED: Right TECHNIQUE: The lower extremity deep venous system is examined utilizing real time linear array sonog chris with graded compression, doppler sonography and color-flow sonography. VESSELS IMAGED: External Iliac Vein (EIV) Common Femoral Vein Deep Femoral Vein Greater Saphenous Vein * Femoral Vein Popliteal Vein FINDINGS: Grayscale, color doppler, spectral doppler imaging performed of the deep veins of the lower extremities. There is normal flow, compressibility, vascular waveforms. IMPRESSION: NEGATIVE FOR DVT RIGHT LOWER EXTREMITY.
[2018-07-05 21:38] VITALS: BP 165/68; PULSE 81; RESP 20; TEMP 98.3
== END 2018-07-05 21:30 | disposition home or self-care (01) ==
LOC: EC 18:12
DX: L03.115 Cellulitis of right lower limb (principal); I48.91 Unspecified atrial fibrillation; M79.604 Pain in right leg; K21.9 Gastro-esophageal reflux disease without esophagitis; I10 Essential (primary) hypertension; Z85.828 Personal history of other malignant neoplasm of skin; Z96.653 Presence of artificial knee joint, bilateral; Z79.899 Other long term (current) drug therapy; Z88.6 Allergy status to analgesic agent; Z88.5 Allergy status to narcotic agent; Z91.041 Radiographic dye allergy status
CPT/HCPCS: 36415; 71046; 80053; 85025; 86140; 93005; 99284